=== PATIENT | female | born 1965 | race African-American/Black ===

== ENCOUNTER 2018-04-16 04:16 | Observation (INO) | payer BC, OTHER ==
--- OUTSIDE RECORDS SUMMARY | 2018-04-16 04:18 | XMS REPORT ---
:1965 [facility] Address [address] [place] [address] Care Team Providers Name Role Phone Unavailable Unavailable Unavailable Payers Payer Name Policy Type Policy Number Effective Date Expiration Date Problems This patient has no known problems. Allergies, Adverse Reactions, Alerts Allergy Allergy Status Severity Reaction(s) Onset Inactive Treating Comments Name Type Date Date Clinician No Known DA Active U 2017-12 Allergies -14 00:00:0 0 No Known DA Active U 2017-04 Allergies -16 00:00:0 0 Medications This patient has no known medications.
[2018-04-16 04:59] LABS: Absolute Monocytes 0.4 K/uL (0.1-1.3); Basophils % 1.2 % (0-1.3); Eosinophils % 1.9 % (0-4.4); Hematocrit 37.2 % (36.0-45.0); Lymphocytes % 43.4 % (15.3-44.8); MPV 9.5 fL (7.6-11.3); Monocytes % 9.7 % (3.3-12.3); RBC Red Blood Cell Count 5.02 M/uL (3.86-4.86)
[2018-04-16 05:00] LABS: Protime INR 0.92
[2018-04-16] MEDS ORDERED: NA CHLORIDE 0.9% 1,000 ML ONE (05:04)
[2018-04-16 05:23] LABS: ALT/SGPT 17 U/L (12-78); AST/SGOT 13 U/L (15-37); Albumin 3.6 g/dL (3.4-5.0); Alkaline Phosphatase 108 U/L (45-117); BUN Blood Urea Nitrogen 9 mg/dL (7-18); Bicarbonate 26 mmol/L (21-32); Bilirubin Direct 0.1 mg/dL (0-0.2); Bilirubin Total 0.3 mg/dL (0.2-1.0); Glucose Level 230 mg/dL (74-106); Magnesium 1.5 mg/dL (1.8-2.4); NT PRO-BNP 24 pg/mL (<125); Potassium 3.1 mmol/L (3.5-5.1); Protein, Total 7.5 g/dL (6.4-8.2); Sodium Level 137 mmol/L (136-145); Troponin (Emerg Dept Use Only) < 0.02 ng/mL (0.0-0.045)
--- NOTE | 2018-04-16 05:28 | ER ---
Nurse's Notes [facility] Name: Gretchen Zavala Age: 52 yrs Sex: Female : 1965 Arrival Date: 04/16/2018 Time: 04:19 Bed 7 Private MD: Diagnosis: Chest pain, unspecified;Essential (primary) hypertension;Hypokalemia;Hypomagnesemia;Type 2 diabetes mellitus Presentation: 04/16 04:28 Presenting complaint: Patient states: I started feeling bad 2 hours ago and my pulse tl2 feels high and my BP keeps changing. My blood sugar is high too. I feel lightheaded like I'm going to pass out. Transition of care: patient was not received from another setting of care. Onset of symptoms was April 16, 2018 at 02:00. Risk Assessment: Do you want to hurt yourself or someone else? Patient reports no desire to harm self or others. Initial Sepsis Screen: Does the patient meet any 2 criteria? No. Patient's initial sepsis screen is negative. Does the patient have a suspected source of infection? No. Patient's initial sepsis screen is negative. Care prior to arrival: None. 04:28 Method Of Arrival: Wheelchair tl2 04:28 Acuity: APOLONIA 3 tl2 Triage Assessment: 04:30 General: Appears in no apparent distress. uncomfortable, Behavior is calm, cooperative, tl2 appropriate for age. Pain: Denies pain. Neuro: Level of Consciousness is awake, alert, obeys commands, Oriented to person, place, time, situation, Reports dizziness. Cardiovascular: Denies chest pain, Rhythm is sinus rhythm. Respiratory: Airway is patent Respiratory effort is even, unlabored, Respiratory pattern is regular, symmetrical. GI: No signs and/or symptoms were reported involving the gastrointestinal system. : No signs and/or symptoms were reported regarding the genitourinary system. Derm: Skin is pink, warm \T\ dry. 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 - Social history:: Smoking status: Patient/guardian denies using tobacco. - Ebola Screening: : No symptoms or risks identified at this time. Screenin:40 Abuse screen: Denies threats or abuse. Nutritional screening: No deficits noted. tl2 Tuberculosis screening: No symptoms or risk factors identified. Fall Risk None identified. Assessment: 04:40 General: see triage assessment. tl2 04:40 Pain: Pain does not radiate. Pain began 2 hours ago. tl2 05:29 Reassessment: Patient appears in no apparent distress at this time. No changes from tl2 previously documented assessment. Patient and/or family updated on plan of care and expected duration. Pain level reassessed. Patient is alert, oriented x 3, equal unlabored respirations, skin warm/dry/pink. pt reports nausea, notified, see MAR. 06:16 Reassessment: Patient appears in no apparent distress at this time. Patient and/or tl2 family updated on plan of care and expected duration. Pain level reassessed. Patient is alert, oriented x 3, equal unlabored respirations, skin warm/dry/pink. pt stable and ready for transport to floor. Vital Signs: 04:30 BP 135 / 88; Pulse 100; Resp 18; Temp 98.5(O); Pulse Ox 100% on R/A; Weight 78.02 kg; tl2 Height 5 ft. 4 in. (162.56 cm); Pain 0/10; 05:29 BP 116 / 85; Pulse 87; Resp 18; Pulse Ox 97% on R/A; tl2 06:16 BP 127 / 81; Pulse 76; Resp 18; Pulse Ox 96% on R/A; tl2 04:30 Body Mass Index 29.52 (78.02 kg, 162.56 cm) tl2 ED Course: 04:19 Patient arrived in ED. am2 04:23 Ollie Posada MD is Attending Physician. félix 04:29 Triage completed. tl2 04:30 Arm band placed on right wrist. EKG completed in triage. Results shown to MD. tl2 04:40 Patient has correct armband on for positive identification. Bed in low position. Call tl2 light in reach. Side rails up X 1. radiation monitor on. Pulse ox on. NIBP on. 04:40 Patient maintains SpO2 saturation greater than 95% on room air. tl2 04:40 Inserted saline lock: 20 gauge in right antecubital area, using aseptic technique. tl2 Blood collected. placed by YOHAN Quijano. 05:06 X-ray completed. Portable x-ray completed in exam room. Patient tolerated procedure sg4 well. 05:07 XRAY Chest (1 view) In Process Unspecified. EDMS 05:27 Jose Reyes MD is Hospitalizing Provider. félix 06:16 No provider procedures requiring assistance completed. Patient admitted, IV remains in tl2 place. Administered Medications: 04:55 Drug: NS 0.9% 1000 ml Route: IV; Rate: 1 bolus; Site: right antecubital; tl2 06:07 Follow up: IV Status: Completed infusion; IV Intake: 1000ml tl2 05:27 Not Given (Duplicate Order): Zofran 4 mg IVP once; over 2 minutes tl2 05:28 Drug: Aspirin 162 mg Route: PO; tl2 06:07 Follow up: Response: No adverse reaction tl2 05:28 Drug: Pepcid 20 mg Route: IVP; Site: right antecubital; tl2 06:07 Follow up: Response: No adverse reaction tl2 05:31 Drug: Zofran 4 mg Route: IVP; Site: right antecubital; tl2 06:08 Follow up: Response: No adverse reaction; Nausea is decreased tl2 05:31 Drug: Magnesium Sulfate 1 grams Route: IVPB; Infused Over: 1 hrs; Site: right tl2 antecubital; 06:08 Follow up: IV Status: Completed infusion tl2 05:32 Drug: Lopressor 25 mg Route: PO; tl2 06:08 Follow up: Response: No adverse reaction tl2 06:07 Drug: Potassium Effervescent Tablet 50 mEq Route: PO; tl2 06:08 Follow up: Response: No adverse reaction tl2 06:07 Drug: NS 0.9% with KCl 20 mEq/L 1000 ml Route: IV; Rate: 125 ml/hr; Site: right tl2 antecubital; 06:17 Follow up: IV Status: Infusion continued upon admission tl2 Intake: 06:07 IV: 1000ml; Total: 1000ml. tl2 Outcome: 05:28 Decision to Hospitalize by Provider. félix 06:07 Admitted to Tele accompanied by nurse, via wheelchair, room 410, with chart, Report joaquin called to Yaz ALMANZAR 06:07 Condition: stable 06:07 Instructed on the need for admit. 06:17 Patient left the ED. tl2 Signatures: Dispatcher [employer] Ollie King MD MD cha Ballard, Brenda RN RN Matilda Eubanks RN RN tl2 Radha Seaman Susana [facility]
--- NOTE | 2018-04-16 05:28 | EDPHYS ---
Physician Documentation [facility] Name: Gretchen Zavala Age: 52 yrs Sex: Female : 1965 Arrival Date: 04/16/2018 Time: 04:19 Bed 7 Private MD: PAYAL Physician Ollie Posada HPI: 04/16 05:22 This 52 yrs old Black Female presents to ER via Wheelchair with complaints of High félix Blood Sugar, Irregular Pulse. 05:22 The patient or guardian reports hyperglycemia. Onset: The symptoms/episode félix began/occurred 1 day(s) ago. Associated signs and symptoms: Pertinent positives: nausea. The patient has not experienced similar symptoms in the past. 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 - Social history:: Smoking status: Patient/guardian denies using tobacco. - Ebola Screening: : No symptoms or risks identified at this time. ROS: 05:23 Constitutional: Negative for fever, chills, and weight loss, Eyes: Negative for injury, félix pain, redness, and discharge, ENT: Negative for injury, pain, and discharge, Neck: Negative for injury, pain, and swelling, Respiratory: Negative for shortness of breath, cough, wheezing, and pleuritic chest pain, Abdomen/GI: Negative for abdominal pain, nausea, vomiting, diarrhea, and constipation, Back: Negative for injury and pain, : Negative for injury, bleeding, discharge, and swelling, MS/Extremity: Negative for injury and deformity, Skin: Negative for injury, rash, and discoloration, Neuro: Negative for headache, weakness, numbness, tingling, and seizure, Psych: Negative for depression, anxiety, suicide ideation, homicidal ideation, and hallucinations, Allergy/Immunology: Negative for hives, rash, and allergies, Hematologic/Lymphatic: Negative for swollen nodes, abnormal bleeding, and unusual bruising. 05:23 Cardiovascular: Positive for chest pain, of the chest. 05:23 Neuro: Positive for 05:23 Endocrine: Positive for hyperglycemia. Exam: 05:23 Constitutional: This is a well developed, well nourished patient who is awake, alert, félix and in no acute distress. Head/Face: Normocephalic, atraumatic. Eyes: Pupils equal round and reactive to light, extra-ocular motions intact. Lids and lashes normal. Conjunctiva and sclera are non-icteric and not injected. Cornea within normal limits. Periorbital areas with no swelling, redness, or edema. ENT: Nares patent. No nasal discharge, no septal abnormalities noted. Tympanic membranes are normal and external auditory canals are clear. Oropharynx with no redness, swelling, or masses, exudates, or evidence of obstruction, uvula midline. Mucous membranes moist. Neck: Trachea midline, no thyromegaly or masses palpated, and no cervical lymphadenopathy. Supple, full range of motion without nuchal rigidity, or vertebral point tenderness. No Meningismus. Chest/axilla: Normal chest wall appearance and motion. Nontender with no deformity. No lesions are appreciated. Cardiovascular: Regular rate and rhythm with a normal S1 and S2. No gallops, murmurs, or rubs. Normal PMI, no JVD. No pulse deficits. Respiratory: Lungs have equal breath sounds bilaterally, clear to auscultation and percussion. No rales, rhonchi or wheezes noted. No increased work of breathing, no retractions or nasal flaring. Abdomen/GI: Soft, non-tender, with normal bowel sounds. No distension or tympany. No guarding or rebound. No evidence of tenderness throughout. Back: No spinal tenderness. No costovertebral tenderness. Full range of motion. Skin: Warm, dry with normal turgor. Normal color with no rashes, no lesions, and no evidence of cellulitis. MS/ Extremity: Pulses equal, no cyanosis. Neurovascular intact. Full, normal range of motion. Neuro: Awake and alert, GCS 15, oriented to person, place, time, and situation. Cranial nerves II-XII grossly intact. Motor strength 5/5 in all extremities. Sensory grossly intact. Cerebellar exam normal. Normal gait. Psych: Awake, alert, with orientation to person, place and time. Behavior, mood, and affect are within normal limits. Vital Signs: 04:30 BP 135 / 88; Pulse 100; Resp 18; Temp 98.5(O); Pulse Ox 100% on R/A; Weight 78.02 kg; tl2 Height 5 ft. 4 in. (162.56 cm); Pain 0/10; 05:29 BP 116 / 85; Pulse 87; Resp 18; Pulse Ox 97% on R/A; tl2 06:16 BP 127 / 81; Pulse 76; Resp 18; Pulse Ox 96% on R/A; tl2 04:30 Body Mass Index 29.52 (78.02 kg, 162.56 cm) tl2 MDM: 04:23 Patient medically screened. [facility] 05:25 Data reviewed: vital signs, nurses notes, lab test result(s), EKG, radiologic studies, félix plain films. 04/16 04:39 Order name: Basic Metabolic Panel; Complete Time: 05:25 2 04/16 04:39 Order name: CBC with Diff; Complete Time: 05:22 2 04/16 04:39 Order name: LFT's; Complete Time: 05:25 2 04/16 04:39 Order name: Magnesium; Complete Time: 05:25 2 04/16 04:39 Order name: NT PRO-BNP; Complete Time: 05:25 2 04/16 04:39 Order name: PT-INR; Complete Time: 05:22 2 04/16 04:39 Order name: Troponin (emerg Dept Use Only); Complete Time: 05:25 2 04/16 05:13 Order name: Urine Dipstick--Ancillary (enter results) 2 04/16 05:57 Order name: Basic Metabolic Panel [facility] 04/16 05:57 Order name: Basic Metabolic Panel EDNM 04/16 05:57 Order name: Lipid Profile EDNM 04/16 05:57 Order name: Lipid Profile EDNM 04/16 05:57 Order name: Troponin I EDNM 04/16 05:57 Order name: Troponin I EDNM 04/16 04:39 Order name: XRAY Chest (1 view) tl2 04/16 04:39 Order name: EKG; Complete Time: 04:40 tl2 04/16 05:57 Order name: CONS Physician Consult EDNM 04/16 05:57 Order name: Troponin I EDNM 04/16 05:59 Order name: Echo with Doppler EDNM 04/16 05:59 Order name: CBC with Automated Diff EDMS 04/16 05:59 Order name: CBC with Automated Diff EDMS 04/16 04:39 Order name: Cardiac monitoring; Complete Time: 04:41 tl2 04/16 04:39 Order name: EKG - Nurse/Tech; Complete Time: 04:41 tl2 04/16 04:39 Order name: IV Saline Lock; Complete Time: 04:41 tl2 04/16 04:39 Order name: Labs collected and sent; Complete Time: 04:41 tl2 04/16 04:39 Order name: O2 Per Protocol; Complete Time: 04:41 tl2 04/16 04:39 Order name: O2 Sat Monitoring; Complete Time: 04:41 tl2 04/16 04:53 Order name: Urine Dipstick-Ancillary (obtain specimen); Complete Time: 04:53 tl2 04/16 05:59 Order name: Heart Healthy EDMS 04/16 05:59 Order name: EKG Electrocardiogram EDMS 04/16 05:59 Order name: EKG Electrocardiogram EDMS Administered Medications: 04:55 Drug: NS 0.9% 1000 ml Route: IV; Rate: 1 bolus; Site: right antecubital; tl2 06:07 Follow up: IV Status: Completed infusion; IV Intake: 1000ml tl2 05:27 Not Given (Duplicate Order): Zofran 4 mg IVP once; over 2 minutes tl2 05:28 Drug: Aspirin 162 mg Route: PO; tl2 06:07 Follow up: Response: No adverse reaction tl2 05:28 Drug: Pepcid 20 mg Route: IVP; Site: right antecubital; tl2 06:07 Follow up: Response: No adverse reaction tl2 05:31 Drug: Zofran 4 mg Route: IVP; Site: right antecubital; tl2 06:08 Follow up: Response: No adverse reaction; Nausea is decreased tl2 05:31 Drug: Magnesium Sulfate 1 grams Route: IVPB; Infused Over: 1 hrs; Site: right tl2 antecubital; 06:08 Follow up: IV Status: Completed infusion tl2 05:32 Drug: Lopressor 25 mg Route: PO; tl2 06:08 Follow up: Response: No adverse reaction tl2 06:07 Drug: Potassium Effervescent Tablet 50 mEq Route: PO; tl2 06:08 Follow up: Response: No adverse reaction tl2 06:07 Drug: NS 0.9% with KCl 20 mEq/L 1000 ml Route: IV; Rate: 125 ml/hr; Site: right tl2 antecubital; 06:17 Follow up: IV Status: Infusion continued upon admission tl2 Disposition: 04/16/18 05:28 Hospitalization ordered by Jose Reyes for Observation. Preliminary diagnosis are Chest pain, unspecified, Essential (primary) hypertension, Hypokalemia, Hypomagnesemia, Type 2 diabetes mellitus. - Bed requested for Telemetry/MedSurg (observation). - Status is Observation. tl2 - Condition is Fair. - Problem is new. - Symptoms have improved. UTI on Admission? No Signatures: Dispatcher [employer] EDMS Janet Rosado RN RN mw Anderson, Corey, MD MD cha Knox, Taylor, RN RN tl2 Corrections: (The following items were deleted from the chart) 05:57 05:28 Hospitalization Ordered by Jose Reyes MD for Observation. Preliminary diagnosis is Chest pain, unspecified; Essential (primary) hypertension; Hypokalemia; Hypomagnesemia; Type 2 diabetes mellitus. Bed requested for Telemetry/MedSurg (observation). Status is Observation. Condition is Fair. Problem is new. Symptoms have improved. UTI on Admission? No. [facility] 06:17 05:57 04/16/2018 05:28 Hospitalization Ordered by Jose Reyes MD for Observation. tl2 Preliminary diagnosis is Chest pain, unspecified; Essential (primary) hypertension; Hypokalemia; Hypomagnesemia; Type 2 diabetes mellitus. Bed requested for Telemetry/MedSurg (observation). Status is Observation. Condition is Fair. Problem is new. Symptoms have improved. UTI on Admission? No. mw
[2018-04-16 05:32] LABS: Urine Blood NEGATIVE (NEG); Urine Glucose 2+ (NEG); Urine Protein NEGATIVE (NEG); Urine Specific Gravity <1.005 (1.005-1.030)
[2018-04-16] MEDS ORDERED: FAMOTIDINE 20 MG/2 ML VIAL IV ONE (05:34)
[2018-04-16] MEDS ORDERED: ASPIRIN 81 MG CHEWABLE TABLET ONE (05:34)
[2018-04-16] MEDS ORDERED: ONDANSETRON 4 MG/2 ML VIAL ONE (05:37)
[2018-04-16] MEDS ORDERED: MAGNESIUM SULFATE 1 gm IVPB 1 GM/100 ML BAG IV ONE (05:37)
[2018-04-16] MEDS ORDERED: METOPROLOL TAR 25 MG TAB ONE (05:37)
[2018-04-16] MEDS ORDERED: POTASSIUM 25 MEQ EFFERV TAB ONE (05:39)
[2018-04-16] MEDS ORDERED: ALPRAZOLAM 0.25 MG TABLET PO PRN (05:53)
[2018-04-16] MEDS ORDERED: ACETAMINOPHEN 500 MG TAB PO PRN (05:53)
[2018-04-16] MEDS ORDERED: MORPHINE 4 MG/ML SYR IV PRN (05:53)
[2018-04-16] MEDS ORDERED: NS KCL 20MEQ 1,000 ML IV ONE (06:15)
[2018-04-16 06:29] VITALS: BMI 29.5
--- NOTE | 2018-04-16 07:41 | EKG ---
Test Date: 2018-04-16 Test Time: 04:28:10 Stunt Driver: TL MEASUREMENT RESULTS: Intervals: Rate: 96 [place]: 140 QRSD: 92 QT: 396 QTc: 500 [place]: P: 59 [place]: 140 QRS: -33 T: 12 INTERPRETIVE STATEMENTS: Normal sinus rhythm Left axis deviation Prolonged QT Abnormal ECG No previous ECG available for comparison Electronically Signed On 04-16-18 07:41:13 CNC FIELD SERVICE ENGINEER by Daniel Ayala
--- NOTE | 2018-04-16 07:50 | RAD REPORT ---
EXAM DESCRIPTION: RAD - Chest Single View - 04/16/2018 5:07 am CLINICAL HISTORY: Heart a arrhythmia, palpitations, near syncope COMPARISON: None. TECHNIQUE: AP portable chest image was obtained . FINDINGS: Lungs are clear. Heart and vasculature are normal. No measurable pleural effusion and no p neumothorax. No acute bony abnormality seen. No acute aortic findings suspected. IMPRESSION: No acute cardiopulmonary process.
[2018-04-16 07:59] LABS: HDL Cholesterol 55 mg/dL (40-60); LDL Cholesterol, Calculated 157 (<130); Troponin I < 0.02 ng/mL (0.0-0.045)
[2018-04-16] MEDS ORDERED: INFLUENZA VACCINE (for 3y+) 0.5 ML DOSE IMVAC ONE (09:00)
[2018-04-16] MEDS ORDERED: ENOXAPARIN 40 MG/0.4 ML SQ SCH (09:00)
[2018-04-16] MEDS ORDERED: PNEUMOCOCCAL VACCINE 0.5 ML IMVAC ONE (09:00)
[2018-04-16] MEDS ORDERED: METOPROLOL TAR 50 MG TAB PO SCH (09:00)
[2018-04-16] MEDS ORDERED: ASPIRIN EC 81 MG TAB PO SCH (09:00)
--- NOTE | 2018-04-16 11:05 | CON ---
CARDIOLOGY CONSULT Chief Complaint: Heart fluttering. History Of Present Illness: Ms. Wilkinson has a history of atrial fibrillation. She is on medicine to co ntrol it, but does not know the names of them and has not been able to obtain the names of them. We have attempted to call up pharmacy, she said she uses, apparently she takes a blood thinner and anoth er medicine for heart rhythm. She takes them usually 2-3 times a year. She will go in the atrial fi brillation. It will last a few minutes to a few hours and then go away. Yesterday's spell was no di fferent. She came to the ER and was in sinus rhythm. By the time she got there, her symptoms had re solved. She has been admitted to the hospital overnight and we have not seen any arrhythmia or any f indings on laboratory tests, EKGs, or symptoms that would warrant any further hospitalization. She h as underlying diabetes, hypertension. Never had coronary heart disease, stroke, myocardial infarctio n, or other vascular disease. Uses no tobacco. Physical Examination: Vital Signs: Height 5 feet 4 inches, weight 172 pounds. HEENT: Normal. Lungs: Clear. Heart: Within normal limits. Abdomen: Soft. Extremities: Normal. Electrocardiogram shows sinus rhythm. There is a borderline prolongation of QT, the QTc is 500. Impression: The patient has stable atrial fibrillation. I do not think it is time to alter any of h er medicines. She should either learn her medicine names or take a picture of the medicine bottles o r keep an electronic list in her phone, so she can tell other physicians what medicines she takes that she should resume her previous atrial fibrillation treatments and I thi nk she should be discharged today. DO Voice ID: [id number] Report ID: [id number]
--- NOTE | 2018-04-16 11:29 | P.HP ---
Certification for Inpatient Patient admitted to: Observation With expected LOS: <2 Midnights Patient will require the following post-hospital care: None Practitioner: I am a practitioner with admitting privileges, knowledge of patient current condition, hospital course, and medical plan of care. Services: Services provided to patient in accordance with Admission requirements found in Title 42 Section 412.3 of the Code of Federal Regulations Patient History Date of Service: 04/16/18 Reason for admission: chest pain rule out acute coronary syndrome History of Present Illness: Patient is a 52yo who was admitted to the hospital with chest pain along with palpatations. Patient has a history of palpitations and has been evaluated in the past and treated for arrhythmia. Patient has had some pain that started today. She had the chest pain in the sternal region. She was admitted to the hospital for further evaluation and to be ruled out for acute coronary syndrome. Allergies No Known Allergies Allergy (Unverified 04/16/18 06:04) - Past Medical/Surgical History Has patient received pneumonia vaccine in the past: No Diabetic: Yes -: Hypertension -: NIDDM Past Surgical History: Patient denies surgical history - Family History Mother Medical History: Heart disease - Social History Smoking Status: Never smoker Alcohol use: No CD- Drugs: No Caffeine use: Yes Place of Residence: Home Review of Systems 10-point ROS is otherwise unremarkable Physical Examination - Vital Signs Temperature: 98.8 F Blood Pressure: 119/77 Pulse: 65 Respirations: 16 Pulse Ox (%): 98 - Physical Exam General: Alert, In no apparent distress, Oriented x3 HEENT: Atraumatic, PERRLA, Mucous membr. moist/pink, EOMI, Sclerae nonicteric Neck: Supple, 2+ carotid pulse no bruit, No LAD, Without JVD or thyroid abnormality Respiratory: Clear to auscultation bilaterally, Normal air movement Cardiovascular: Regular rate/rhythm, Normal S1 S2, No murmurs Gastrointestinal: Normal bowel sounds, Soft and benign, Non-distended, No tenderness Musculoskeletal: No clubbing, No swelling, No tenderness Integumentary: No rashes Neurological: Normal gait, Normal speech, Normal strength at 5/5 x4 extr, Normal tone, Sensation intact, Cranial nerves 3-12 intact, Normal affect Lymphatics: No axilla or inguinal lymphadenopathy - Studies Laboratory Data (last 24 hrs) 04/16/18 04:40: PT 10.8, INR 0.92 04/16/18 04:40: WBC 4.6, Hgb 12.0, Hct 37.2, Plt Count 239 04/16/18 04:40: Sodium 137, Potassium 3.1 L, BUN 9, Creatinine 0.64, Glucose 230 H, Magnesium 1.5 L, Total Bilirubin 0.3, AST 13 L, ALT 17, Alkaline Phosphatase 108 Assessment & Plan - Problems (Diagnosis) (1) Chest pain, rule out acute myocardial infarction Current Visit: Yes Status: Acute - Plan 1. Serial troponins and EKG 2. Cardiology consultation 3. Echocardiogram and inpatient stress test(pending cardiology evaluation) 4. Anti-platelet therapy, anti coagulation, beta-karrie, statin, and O2 as needed 5. IV morphine for pain 6. Nitro p.r.n. Discharge Plan: Home Plan to discharge in: 48 Hours - Advance Directives Does patient have a Living Will: No Does patient have a Durable POA for Healthcare: No - Code Status/Comfort Care Code Status Assessed: Yes Code Status: Full Code Critical Care: No Time Spent Managing PTS Care (In Minutes): 45
[2018-04-16 12:19] VITALS: O2SAT 95
[2018-04-16 12:23] VITALS: BP 105/61; TEMP 98.6
[2018-04-16] MEDS ORDERED: METFORMIN HCL 500 MG TAB PO ONE (12:23)
== END 2018-04-16 12:58 | disposition home or self-care (01) ==
LOC: ER 04:16 → ERHOLD 05:59 → 4TH 06:08
PROVIDERS: ADMIT Hospitalist; ATTEND Hospitalist
DX: R07.9 Chest pain, unspecified (principal); R00.2 Palpitations; I48.91 Unspecified atrial fibrillation; I10 Essential (primary) hypertension; E11.9 Type 2 diabetes mellitus without complications
CPT/HCPCS: 36415; 71045; 80048; 80061; 80076; 81003; 82962; 83735; 83880; 84484; 85025; 85610; 93005; 96361; 96365; 96375; 99285; G0378; J1650; J2405; J3475; J7030

== ENCOUNTER 2018-05-26 23:52 | Emergency (ER) | payer BC ==
--- OUTSIDE RECORDS SUMMARY | 2018-05-26 23:55 | XMS REPORT ---
:1965 [facility] Address [address] [place] [address] Care Team Providers Name Role Phone Unavailable [...]
[2018-05-27 00:44] LABS: Absolute Lymphocytes (CBC) 1.8 K/uL (0.7-4.9); Absolute Monocytes 0.3 K/uL (0.1-1.3); Absolute Neutrophil 3.2 K/uL (1.8-8.0); Basophils % 1.3 % (0-1.3); Eosinophils % 0.5 % (0-4.4); Hematocrit 38.2 % (36.0-45.0); MPV 10.1 fL (7.6-11.3); Monocytes % 6.4 % (3.3-12.3); RBC Red Blood Cell Count 5.08 M/uL (3.86-4.86)
[2018-05-27 00:58] LABS: BUN Blood Urea Nitrogen 12 mg/dL (7-18); Bicarbonate 28 mmol/L (21-32); Glucose Level 373 mg/dL (74-106); Potassium 3.8 mmol/L (3.5-5.1); Sodium Level 138 mmol/L (136-145)
[2018-05-27] MEDS ORDERED: INSULIN -REGULAR HUMAN 50 UNIT/0.5 ML ML ONE (01:26)
[2018-05-27] MEDS ORDERED: NA CHLORIDE 0.9% 1,000 ML ONE (01:26)
[2018-05-27 01:37] LABS: Urine Blood NEGATIVE (NEG); Urine Glucose 2+ (NEG); Urine Protein TRACE (NEG); Urine Specific Gravity 1.015 (1.005-1.030)
--- NOTE | 2018-05-27 02:14 | EDPHYS ---
Physician Documentation [facility] Name: Gretchen Zavala Age: 53 yrs Sex: Female : 1965 Arrival Date: 05/26/2018 Time: 23:56 Bed 19 Private MD: Michael Mercado ED Physician Jose Angel Saunders HPI: 05/27 01:06 This 53 yrs old Black Female presents to ER via Ambulatory with complaints of High kb Blood Sugar. 01:06 The patient or guardian reports hyperglycemia, that was potentially precipitated by kb forgetting medications. Onset: The symptoms/episode began/occurred 1 week(s) ago. Associated signs and symptoms: Pertinent positives: nausea. Current symptoms: In the emergency department the patient's symptoms are unchanged from the initial presentation. The patient has experienced similar episodes in the past. The patient has not recently seen a physician. Pt reports she lost her diabetic medication a month ago and her sugar has been running in the 600s for at least a week. Historical: - Allergies: 00:19 No Known Allergies; fc - Home Meds: 00:21 losartan 100 mg oral tab 1 tab once daily [Active]; fc - PMHx: 00:19 Diabetes - NIDDM; Hypertension; High Cholesterol; fc - PSHx: 00:19 Tubal ligation; fc - Immunization history:: Last tetanus immunization: up to date Flu vaccine is not up to date. - Social history:: Smoking status: Patient/guardian denies using tobacco, Patient/guardian denies using alcohol, street drugs. - Ebola Screening: : Patient negative for fever greater than or equal to 101.5 degrees Fahrenheit, and additional compatible Ebola Virus Disease symptoms Patient denies exposure to infectious person Patient denies travel to an Ebola-affected area in the 21 days before illness onset. ROS: 01:05 Constitutional: Negative for fever, chills, and weight loss, ENT: Negative for injury, kb pain, and discharge, Neck: Negative for injury, pain, and swelling, Cardiovascular: Negative for chest pain, palpitations, and edema, Respiratory: Negative for shortness of breath, cough, wheezing, and pleuritic chest pain, Back: Negative for injury and pain, MS/Extremity: Negative for injury and deformity, Skin: Negative for injury, rash, and discoloration, Neuro: Negative for headache, weakness, numbness, tingling, and seizure. 01:05 Abdomen/GI: Positive for nausea, Negative for abdominal pain, vomiting, diarrhea, constipation, abdominal cramps, abdominal distension, anorexia. Exam: 01:06 Constitutional: This is a well developed, well nourished patient who is awake, alert, kb and in no acute distress. Head/Face: Normocephalic, atraumatic. ENT: Nares patent. No nasal discharge, no septal abnormalities noted. Tympanic membranes are normal and external auditory canals are clear. Oropharynx with no redness, swelling, or masses, exudates, or evidence of obstruction, uvula midline. Mucous membranes moist. Neck: Trachea midline, no thyromegaly or masses palpated, and no cervical lymphadenopathy. Supple, full range of motion without nuchal rigidity, or vertebral point tenderness. No Meningismus. Chest/axilla: Normal chest wall appearance and motion. Nontender with no deformity. No lesions are appreciated. Cardiovascular: Regular rate and rhythm with a normal S1 and S2. No gallops, murmurs, or rubs. Normal PMI, no JVD. No pulse deficits. Respiratory: Lungs have equal breath sounds bilaterally, clear to auscultation and percussion. No rales, rhonchi or wheezes noted. No increased work of breathing, no retractions or nasal flaring. Abdomen/GI: Soft, non-tender, with normal bowel sounds. No distension or tympany. No guarding or rebound. No evidence of tenderness throughout. Skin: Warm, dry with normal turgor. Normal color with no rashes, no lesions, and no evidence of cellulitis. MS/ Extremity: Pulses equal, no cyanosis. Neurovascular intact. Full, normal range of motion. Neuro: Awake and alert, GCS 15, oriented to person, place, time, and situation. Cranial nerves II-XII grossly intact. Motor strength 5/5 in all extremities. Sensory grossly intact. Cerebellar exam normal. Normal gait. Vital Signs: 00:00 Weight 79.83 kg (R); Height 5 ft. 4 in. (162.56 cm) (R); Pain 0/10; fc 00:00 BP 147 / 85; Pulse 84; Resp 16; Temp 98.8(O); Pulse Ox 100% on R/A; jb4 01:15 BP 115 / 67; Pulse 95; Resp 16; Pulse Ox 98% on R/A; jb4 02:15 BP 111 / 70; Pulse 94; Resp 16; Pulse Ox 99% on R/A; jb4 00:00 Body Mass Index 30.21 (79.83 kg, 162.56 cm) fc MDM: 00:04 Patient medically screened. kb 01:05 Data reviewed: vital signs, nurses notes. Data interpreted: Pulse oximetry: on room air kb is 100 %. Interpretation: normal. Counseling: I had a detailed discussion with the patient and/or guardian regarding: the historical points, exam findings, and any diagnostic results supporting the discharge/admit diagnosis, lab results, the need for outpatient follow up, a family practitioner, to return to the emergency department if symptoms worsen or persist or if there are any questions or concerns that arise at home. 05/27 00:11 Order name: CBC with Diff; Complete Time: 01:02 kb 05/27 00:11 Order name: Basic Metabolic Panel; Complete Time: 01:02 kb 05/27 00:11 Order name: Acetone, Serum; Complete Time: 01:02 kb 05/27 01:18 Order name: Urine Dipstick--Ancillary (enter results); Complete Time: 01:41 mw2 05/27 01:18 Order name: Urine --Ancillary (enter results); Complete Time: 01:41 mw2 05/27 00:11 Order name: IV Start; Complete Time: 00:34 kb 05/27 00:11 Order name: Urine Dipstick-Ancillary (obtain specimen); Complete Time: 01:05 kb 05/27 01:45 Order name: Blood Glucose Level; Complete Time: 02:21 kb Administered Medications: 01:30 Drug: Insulin Regular Human 5 units {Co-Signature: cc3 (Margarette Presley).} Route: IVP; jb4 Site: right antecubital; 02:22 Follow up: Response: No adverse reaction; Blood sugar is lowered jb4 01:33 Drug: NS 0.9% 1000 ml Route: IV; Rate: 1000 ml; Site: right antecubital; jb4 02:10 Follow up: Response: No adverse reaction; IV Status: Completed infusion; IV Intake: jb4 1000ml Point of Care Testing: Blood Glucose: 00:20 Blood Glucose: 334 mg/dL; jb4 02:04 Blood Glucose: 245 mg/dL; cc3 Ranges: Critical Glucose Levels:Adult <50 mg/dl or >400 mg/dl <40 mg/dl or >180 mg/dl Disposition: 05/27/18 02:14 Discharged to Home. Impression: Hyperglycemia, unspecified. - Condition is Stable. - Discharge Instructions: Hyperglycemia, [id number], Type 2 Diabetes Mellitus, Diagnosis, Adult, [id number]. - Medication Reconciliation Form, Thank You Letter, Antibiotic Education, Prescription Opioid Use form. - Follow up: Emergency Department; When: As needed; Reason: Worsening of condition. Follow up: Private Physician; When: 2 - 3 days; Reason: Recheck today's complaints, Continuance of care, Re-evaluation by your physician. Addendum: 05/29/2018 19:39 Co-signature as Attending Physician, Jose Angel Saunders MD. g s Signatures: Dispatcher [employer] EDMS Tiffany Aguilar, METAL PATTERNMAKER APPRENTICE-C METAL PATTERNMAKER APPRENTICE-Marcie Vicente RN RN Julio César Queen RN RN jb4 Jose Angel Saunders MD MD Margarette Presley cc3 Corrections: (The following items were deleted from the chart) 05/27 02:34 02:14 05/27/2018 02:14 Discharged to Home. Impression: Hyperglycemia, unspecified. jb4 Condition is Stable. Forms are Medication Reconciliation Form, Thank You Letter, Antibiotic Education, Prescription Opioid Use. Follow up: Emergency Department; When: As needed; Reason: Worsening of condition. Follow up: Private Physician; When: 2 - 3 days; Reason: Recheck today's complaints, Continuance of care, Re-evaluation by your physician. kb
--- NOTE | 2018-05-27 02:14 | ER ---
Nurse's Notes [facility] Name: Gretchen Zavala Age: 53 yrs Sex: Female : 1965 Arrival Date: 05/26/2018 Time: 23:56 Bed 19 Private MD: Michael Mercado Diagnosis: Hyperglycemia, unspecified Presentation: 05/27 00:00 Presenting complaint: Patient states: that she has been out of her diab. medication x 1 fc month. Approx 1 week ago she started to have blood sugars in the 600's, nausea, shortness of breath and feeling off balance. Has appt with Dr Eckert next Wednesday. Normally takes Metformin and Glimiperide. Transition of care: patient was not received from another setting of care. Onset of symptoms was May 19, 2018. Risk Assessment: Do you want to hurt yourself or someone else? Patient reports no desire to harm self or others. Initial Sepsis Screen: Does the patient meet any 2 criteria?. Care prior to arrival: None. 00:00 Method Of Arrival: Ambulatory fc 00:00 Acuity: APOLONIA 3 fc Historical: - Allergies: 00:19 No Known Allergies; fc - Home Meds: 00:21 losartan 100 mg oral tab 1 tab once daily [Active]; fc - PMHx: 00:19 Diabetes - NIDDM; Hypertension; High Cholesterol; fc - PSHx: 00:19 Tubal ligation; fc - Immunization history:: Last tetanus immunization: up to date Flu vaccine is not up to date. - Social history:: Smoking status: Patient/guardian denies using tobacco, Patient/guardian denies using alcohol, street drugs. - Ebola Screening: : Patient negative for fever greater than or equal to 101.5 degrees Fahrenheit, and additional compatible Ebola Virus Disease symptoms Patient denies exposure to infectious person Patient denies travel to an Ebola-affected area in the 21 days before illness onset. Screenin:00 Abuse screen: Denies threats or abuse. Nutritional screening: No deficits noted. fc Tuberculosis screening: No symptoms or risk factors identified. Fall Risk None identified. Assessment: 00:10 General: Appears in no apparent distress. comfortable, Behavior is calm, cooperative, jb4 appropriate for age. Pain: Complains of pain in epigastric area Pain does not radiate. Neuro: Level of Consciousness is awake, alert, obeys commands, Oriented to person, place, time, situation. Cardiovascular: Patient's skin is warm and dry. Respiratory: Airway is patent Respiratory effort is even, unlabored, Respiratory pattern is regular, symmetrical. GI: Reports upper abdominal pain. : No signs and/or symptoms were reported regarding the genitourinary system. EENT: No signs and/or symptoms were reported regarding the EENT system. Derm: Skin is intact, Skin is dry, Skin is normal, Skin temperature is warm. Musculoskeletal: Circulation, motion, and sensation intact. 01:00 Reassessment: Patient appears in no apparent distress at this time. Patient and/or jb4 family updated on plan of care and expected duration. Pain level reassessed. Patient is alert, oriented x 3, equal unlabored respirations, skin warm/dry/pink. 02:00 Reassessment: Patient appears in no apparent distress at this time. Patient and/or jb4 family updated on plan of care and expected duration. Pain level reassessed. Patient is alert, oriented x 3, equal unlabored respirations, skin warm/dry/pink. Vital Signs: 00:00 Weight 79.83 kg (R); Height 5 ft. 4 in. (162.56 cm) (R); Pain 0/10; fc 00:00 BP 147 / 85; Pulse 84; Resp 16; Temp 98.8(O); Pulse Ox 100% on R/A; jb4 01:15 BP 115 / 67; Pulse 95; Resp 16; Pulse Ox 98% on R/A; jb4 02:15 BP 111 / 70; Pulse 94; Resp 16; Pulse Ox 99% on R/A; jb4 00:00 Body Mass Index 30.21 (79.83 kg, 162.56 cm) ED Course: 05/26 23:56 Patient arrived in ED. es 23:57 Michael Mercado MD is Private Physician. es 05/27 00:00 Arm band placed on Patient placed in an exam room, on a stretcher. fc 00:00 Patient has correct armband on for positive identification. Placed in gown. Bed in low fc position. Call light in reach. 00:00 No provider procedures requiring assistance completed. fc 00:04 Tiffany Aguilar FNP-C is [facility]. kb 00:04 Jose Angel Saunders MD is Attending Physician. kb 00:16 Triage completed. fc 00:20 Initial lab(s) drawn, by me, sent to lab. Inserted saline lock: 20 gauge in left jb4 antecubital area, using aseptic technique. Blood collected. 00:20 Missed attempt(s): 20 gauge in right antecubital area. jb4 00:34 Julio César Meza, RN is Primary Nurse. jb4 00:34 Acetone, Serum Sent. jb4 00:34 Basic Metabolic Panel Sent. jb4 00:34 CBC with Diff Sent. jb4 01:30 Inserted saline lock: 20 gauge in right antecubital area, using aseptic technique. IV jb4 discontinued, intact, bleeding controlled. 02:32 IV discontinued, intact, bleeding controlled. jb4 Administered Medications: 01:30 Drug: Insulin Regular Human 5 units {Co-Signature: cece3 (Margarette Presley).} Route: IVP; jb4 Site: right antecubital; 02:22 Follow up: Response: No adverse reaction; Blood sugar is lowered jb4 01:33 Drug: NS 0.9% 1000 ml Route: IV; Rate: 1000 ml; Site: right antecubital; jb4 02:10 Follow up: Response: No adverse reaction; IV Status: Completed infusion; IV Intake: jb4 1000ml Point of Care Testing: Blood Glucose: 00:20 Blood Glucose: 334 mg/dL; jb4 02:04 Blood Glucose: 245 mg/dL; cc3 Ranges: Intake: 02:10 IV: 1000ml; Total: 1000ml. jb4 Outcome: 02:14 Discharge ordered by . kb 02:32 Discharged to home ambulatory. jb4 02:32 Condition: stable 02:32 Discharge instructions given to patient, Instructed on discharge instructions, follow up and referral plans. Signs and symptoms of hypoglyemia. Demonstrated understanding of instructions, follow-up care, Signs and symptoms of hypoglycemia. 02:34 Patient left the ED. jb4 Signatures: Tiffany Aguilar FNP-C FNP-Enid Mullen Felicia, RN RN fc Bryson, James, Margarette Silverio RN
[2018-05-27 02:46] VITALS: BP 111/70; TEMP 98.8; O2SAT 99
== END 2018-05-27 02:34 | disposition home or self-care (01) ==
LOC: ER 23:52
DX: E11.65 Type 2 diabetes mellitus with hyperglycemia (principal); I10 Essential (primary) hypertension; E78.00 Pure hypercholesterolemia, unspecified
CPT/HCPCS: 36415; 80048; 81003; 81025; 82010; 82962; 85025; 96361; 96374; 99284; J7030

== ENCOUNTER 2018-06-13 23:55 | Emergency (ER) | payer BC ==
--- OUTSIDE RECORDS SUMMARY | 2018-06-13 23:57 | XMS REPORT ---
:1965 [facility] Address [address] [place] [address] Care Team Providers Name Role Phone Unavailable [...]
[2018-06-14 00:52] LABS: Absolute Lymphocytes (CBC) 2.2 K/uL (0.7-4.9); Absolute Monocytes 0.4 K/uL (0.1-1.3); Absolute Neutrophil 2.8 K/uL (1.8-8.0); Basophils % 1.2 % (0-1.3); Eosinophils % 0.8 % (0-4.4); Hematocrit 39.2 % (36.0-45.0); Lymphocytes % 40.6 % (15.3-44.8); MPV 10.1 fL (7.6-11.3); Monocytes % 6.6 % (3.3-12.3); RBC Red Blood Cell Count 5.14 M/uL (3.86-4.86)
[2018-06-14 01:21] LABS: Albumin 3.7 g/dL (3.4-5.0); Bilirubin Direct 0.2 mg/dL (0-0.2); Bilirubin Total 0.5 mg/dL (0.2-1.0); Potassium 3.7 mmol/L (3.5-5.1); Protein, Total 7.9 g/dL (6.4-8.2)
[2018-06-14] MEDS ORDERED: ONDANSETRON 4 MG/2 ML VIAL ONE (02:14)
[2018-06-14] MEDS ORDERED: NA CHLORIDE 0.9% 1,000 ML ONE (02:14)
[2018-06-14] MEDS ORDERED: INSULIN -REGULAR HUMAN 50 UNIT/0.5 ML ML ONE (02:14)
--- NOTE | 2018-06-14 03:43 | ER ---
Nurse's Notes [facility] Name: Gretchen Zavala Age: 53 yrs Sex: Female : 1965 Arrival Date: 06/13/2018 Time: 23:58 Bed 19 Private MD: Michael Mercado Diagnosis: Hyperglycemia, unspecified Presentation: 06/14 00:07 Presenting complaint: Patient states: I have high blood sugar, and I just don't feel jb4 well. I have been having diarrhea and stomach pain since earlier today. 00:07 Transition of care: patient was not received from another setting of care. Onset of jb4 symptoms was June 13, 2018. Risk Assessment: Do you want to hurt yourself or someone else? Patient reports no desire to harm self or others. Initial Sepsis Screen: Does the patient meet any 2 criteria? HR > 90 bpm. Yes Does the patient have a suspected source of infection? No. Patient's initial sepsis screen is negative. Care prior to arrival: None. 00:07 Method Of Arrival: Ambulatory jb4 00:07 Acuity: APOLONIA 3 jb4 Triage Assessment: 00:07 General: Appears in no apparent distress. uncomfortable, Behavior is calm, cooperative, jb4 appropriate for age. Pain: Complains of pain in epigastric area Pain does not radiate. Pain currently is 10 out of 10 on a pain scale. Quality of pain is described as aching, crampy, Pain began 1 day ago. EENT: No signs and/or symptoms were reported regarding the EENT system. Neuro: Level of Consciousness is awake, alert, obeys commands, Oriented to person, place, time, situation. Cardiovascular: Patient's skin is warm and dry. Respiratory: Airway is patent Respiratory effort is even, unlabored, Respiratory pattern is regular, symmetrical. GI: Abdomen is non-distended, obese, Bowel sounds present X 4 quads. Abd is soft and non tender X 4 quads. Abdomen is tender to palpation in epigastric area Reports upper abdominal pain, diarrhea, nausea. : No signs and/or symptoms were reported regarding the genitourinary system. Derm: Skin is intact, Skin is dry, Skin is normal, Skin temperature is warm. Musculoskeletal: Circulation, motion, and sensation intact. FAMILY LAW SPECIALIST: 00:07 LMP N/A - Post-menopause jb4 Historical: - Allergies: 00:07 No Known Allergies; jb4 - Home Meds: 00:07 unknown BP med [Active]; Nifedipine Oral [Active]; losartan 100 mg Oral tab 1 tab once jb4 daily [Active]; Metformin Oral [Active]; atorvastatin 20 mg oral tab 1 tab once daily [Active]; sertraline 50 mg oral tab 1 tab once daily [Active]; alpha lipoic acid 600 mg oral cap [Active]; Farxiga 10 mg oral tab [Active]; Eliquis 5 mg oral tab [Active]; ozempic [Active]; - PMHx: 00:07 Hypertension; High Cholesterol; Diabetes - NIDDM; Depression; jb4 - PSHx: 00:07 Tubal ligation; jb4 - Immunization history:: Adult Immunizations up to date, Flu vaccine status is unknown. - Social history:: Smoking status: Patient/guardian denies using tobacco, Patient uses alcohol, occasionally. - Ebola Screening: : No symptoms or risks identified at this time. Screenin:07 Abuse screen: Denies threats or abuse. Nutritional screening: No deficits noted. jb4 Tuberculosis screening: No symptoms or risk factors identified. Fall Risk IV access (20 points). Total Guardado Fall Scale indicates No Risk (0-24 pts). Assessment: 00:07 General: See triage assessment.. jb4 01:00 Reassessment: Patient appears in no apparent distress at this time. Patient and/or jb4 family updated on plan of care and expected duration. Pain level reassessed. Patient is alert, oriented x 3, equal unlabored respirations, skin warm/dry/pink. 02:00 Reassessment: Patient appears in no apparent distress at this time. Patient and/or jb4 family updated on plan of care and expected duration. Pain level reassessed. Patient is alert, oriented x 3, equal unlabored respirations, skin warm/dry/pink. 03:00 Reassessment: Patient appears in no apparent distress at this time. Patient and/or jb4 family updated on plan of care and expected duration. Pain level reassessed. Patient is alert, oriented x 3, equal unlabored respirations, skin warm/dry/pink. 04:14 Reassessment: Patient appears in no apparent distress at this time. Patient and/or jb4 family updated on plan of care and expected duration. Pain level reassessed. Patient is alert, oriented x 3, equal unlabored respirations, skin warm/dry/pink. Vital Signs: 00:07 BP 146 / 98; Pulse 101; Resp 18; Temp 98.1(O); Pulse Ox 97% on R/A; Weight 79.38 kg jb4 (R); Height 5 ft. 4 in. (162.56 cm); Pain 10/10; 01:00 BP 128 / 87; Pulse 93; Resp 16; Pulse Ox 95% on R/A; jb4 02:00 BP 143 / 94; Pulse 92; Resp 16; Pulse Ox 94% on R/A; jb4 03:00 BP 142 / 86; Pulse 91; Resp 16; Pulse Ox 97% on R/A; jb4 04:00 BP 122 / 78; Pulse 76; Resp 16; Pulse Ox 98% on R/A; jb4 00:07 Body Mass Index 30.04 (79.38 kg, 162.56 cm) jb4 ED Course: 06/13 23:58 Patient arrived in ED. ds1 23:59 Michael Mercado MD is Private Physician. ds1 06/14 00:07 Arm band placed on. jb4 00:07 Patient has correct armband on for positive identification. Placed in gown. Bed in low jb4 position. Call light in reach. Side rails up X 1. Pulse ox on. NIBP on. 00:09 Julio César Meza, RN is Primary Nurse. jb4 00:15 Initial lab(s) drawn, by md, sent to lab. Inserted saline lock: 20 gauge in right jb4 antecubital area, using aseptic technique. Blood collected. 00:18 Anirudh Montero MD is Attending Physician. tw4 00:25 Triage completed. jb4 03:41 Michael Mercado MD is Referral Physician. tw4 04:00 No provider procedures requiring assistance completed. Patient did not have IV access jb4 during this emergency room visit. Administered Medications: 02:05 Drug: Insulin Regular Human 10 units {Co-Signature: ak1 (Marylin Lea RN).} Route: IVP; jb4 Site: right antecubital; 03:00 Follow up: Response: No adverse reaction; Blood sugar is lowered jb4 02:06 Drug: NS 0.9% 1000 ml Route: IV; Rate: 1 bolus; Site: right antecubital; jb4 03:30 Follow up: Response: No adverse reaction; IV Status: Completed infusion; IV Intake: jb4 1000ml 02:07 Drug: Zofran 4 mg Route: IVP; Site: right antecubital; jb4 02:30 Follow up: Response: No adverse reaction; Nausea is decreased jb4 Point of Care Testing: Blood Glucose: 00:15 Blood Glucose: 418 mg/dL; jb4 03:00 Blood Glucose: 200 mg/dL; jb4 Ranges: Intake: 03:30 IV: 1000ml; Total: 1000ml. jb4 Outcome: 03:43 Discharge ordered by . tw4 04:00 Discharged to home ambulatory. jb4 04:00 Condition: stable 04:00 Discharge instructions given to patient, Instructed on discharge instructions, follow up and referral plans. Demonstrated understanding of instructions, follow-up care. 04:18 Patient left the ED. jb4 Signatures: Funmi Chaudhry ds1 Julio César Meza RN RN jb4 Anirudh Montero MD MD tw4 Marylin Lea RN ak1
--- NOTE | 2018-06-14 03:44 | EDPHYS ---
Physician Documentation [facility] Name: Gretchen Zavala Age: 53 yrs Sex: Female : 1965 Arrival Date: 06/13/2018 Time: 23:58 Bed 19 Private MD: Michael Mercado ED Physician Anirudh Montero HPI: 06/14 03:39 This 53 yrs old Black Female presents to ER via Ambulatory with complaints of High tw4 Blood Sugar. 03:39 The patient or guardian reports hyperglycemia. Onset: The symptoms/episode tw4 began/occurred today. Current symptoms: In the emergency department the patient's symptoms are unchanged from the initial presentation. nausea, The patient has not experienced similar symptoms in the past. 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-menopause jb4 Historical: - Allergies: 00:07 No Known Allergies; jb4 - Home Meds: 00:07 unknown BP med [Active]; Nifedipine Oral [Active]; losartan 100 mg Oral tab 1 tab once jb4 daily [Active]; Metformin Oral [Active]; atorvastatin 20 mg oral tab 1 tab once daily [Active]; sertraline 50 mg oral tab 1 tab once daily [Active]; alpha lipoic acid 600 mg oral cap [Active]; Farxiga 10 mg oral tab [Active]; Eliquis 5 mg oral tab [Active]; ozempic [Active]; - PMHx: 00:07 Hypertension; High Cholesterol; Diabetes - NIDDM; Depression; jb4 - PSHx: 00:07 Tubal ligation; jb4 - Immunization history:: Adult Immunizations up to date, Flu vaccine status is unknown. - Social history:: Smoking status: Patient/guardian denies using tobacco, Patient uses alcohol, occasionally. - Ebola Screening: : No symptoms or risks identified at this time. ROS: 03:39 Constitutional: Negative for fever, chills, and weight loss, Eyes: Negative for injury, tw4 pain, redness, and discharge, Cardiovascular: Negative for chest pain, palpitations, and edema, Respiratory: Negative for shortness of breath, cough, wheezing, and pleuritic chest pain, Back: Negative for injury and pain. 03:39 MS/Extremity: Negative for injury and deformity, Skin: Negative for injury, rash, and discoloration, Neuro: Negative for headache, weakness, numbness, tingling, and seizure. 03:39 Abdomen/GI: Positive for nausea, Negative for abdominal pain, nausea and vomiting, vomiting, diarrhea, abdominal cramps, abdominal distension, anorexia, black/tarry stool, rectal pain, rectal bleeding, bowel incontinence. Exam: 03:39 Constitutional: This is a well developed, well nourished patient who is awake, alert, tw4 and in no acute distress. Head/Face: Normocephalic, atraumatic. Eyes: Pupils equal round and reactive to light, extra-ocular motions intact. Lids and lashes normal. Conjunctiva and sclera are non-icteric and not injected. Cornea within normal limits. Periorbital areas with no swelling, redness, or edema. Chest/axilla: Normal chest wall appearance and motion. Nontender with no deformity. No lesions are appreciated. Cardiovascular: Regular rate and rhythm with a normal S1 and S2. No gallops, murmurs, or rubs. Normal PMI, no JVD. No pulse deficits. Respiratory: Lungs have equal breath sounds bilaterally, clear to auscultation and percussion. No rales, rhonchi or wheezes noted. No increased work of breathing, no retractions or nasal flaring. Back: No spinal tenderness. No costovertebral tenderness. Full range of motion. MS/ Extremity: Pulses equal, no cyanosis. Neurovascular intact. Full, normal range of motion. Neuro: Awake and alert, GCS 15, oriented to person, place, time, and situation. Cranial nerves II-XII grossly intact. Motor strength 5/5 in all extremities. Sensory grossly intact. Cerebellar exam normal. Normal gait. Vital Signs: 00:07 BP 146 / 98; Pulse 101; Resp 18; Temp 98.1(O); Pulse Ox 97% on R/A; Weight 79.38 kg jb4 (R); Height 5 ft. 4 in. (162.56 cm); Pain 10/10; 01:00 BP 128 / 87; Pulse 93; Resp 16; Pulse Ox 95% on R/A; jb4 02:00 BP 143 / 94; Pulse 92; Resp 16; Pulse Ox 94% on R/A; jb4 03:00 BP 142 / 86; Pulse 91; Resp 16; Pulse Ox 97% on R/A; jb4 04:00 BP 122 / 78; Pulse 76; Resp 16; Pulse Ox 98% on R/A; 4 00:07 Body Mass Index 30.04 (79.38 kg, 162.56 cm) MDM: 00:18 Patient medically screened. tw4 03:39 Differential diagnosis: DKA, hyperglycemia. Data reviewed: vital signs, nurses notes. tw4 Data interpreted: Pulse oximetry: Interpretation: normal. Counseling: I had a detailed discussion with the patient and/or guardian regarding: the historical points, exam findings, and any diagnostic results supporting the discharge/admit diagnosis, lab results. Medication response: insulin . Response to treatment: and as a result, I will discharge patient. 06/14 00:28 Order name: Basic Metabolic Panel; Complete Time: 01:33 06/14 01:33 Interpretation: Normal except: GLUC 426; GFR 71. 06/14 00:28 Order name: CBC with Diff; Complete Time: 01:33 06/14 01:33 Interpretation: Normal except: RBC 5.14; MCV 76.4; MCHC 30.8; MCH 23.5. 06/14 00:28 Order name: Creatinine for Radiology 06/14 00:28 Order name: Hepatic Function; Complete Time: 01:33 06/14 01:34 Interpretation: Normal except: AST 12; ALK 124; GLOB 4.2; A/G 0.9. 06/14 00:28 Order name: Lipase 06/14 00:28 Order name: IV Saline Lock; Complete Time: 00:44 06/14 00:28 Order name: Labs collected and sent; Complete Time: 00:44 Administered Medications: 02:05 Drug: Insulin Regular Human 10 units {Co-Signature: ak1 (Marylin Lae RN).} Route: IVP; jb4 Site: right antecubital; 03:00 Follow up: Response: No adverse reaction; Blood sugar is lowered 02:06 Drug: NS 0.9% 1000 ml Route: IV; Rate: 1 bolus; Site: right antecubital; jb4 03:30 Follow up: Response: No adverse reaction; IV Status: Completed infusion; IV Intake: jb4 1000ml 02:07 Drug: Zofran 4 mg Route: IVP; Site: right antecubital; jb4 02:30 Follow up: Response: No adverse reaction; Nausea is decreased jb4 Point of Care Testing: Blood Glucose: 00:15 Blood Glucose: 418 mg/dL; jb4 03:00 Blood Glucose: 200 mg/dL; jb4 Ranges: Critical Glucose Levels:Adult <50 mg/dl or >400 mg/dl <40 mg/dl or >180 mg/dl Disposition: 06/14/18 03:43 Discharged to Home. Impression: Hyperglycemia, unspecified. - Condition is Stable. - Discharge Instructions: Hyperglycemia. - Medication Reconciliation Form, Thank You Letter, Antibiotic Education, Prescription Opioid Use form. - Follow up: Michael Mercado MD; When: Upon discharge from the Emergency Department; Reason: If symptoms return, Recheck today's complaints, Continuance of care. - Problem is new. - Symptoms have improved. Signatures: Dispatcher [employer] EDMS Julio César Meza RN RN jb4 Anirudh Montero MD MD tw4 Marylin Lea RN ak1 Corrections: (The following items were deleted from the chart) 04:18 03:43 06/14/2018 03:43 Discharged to Home. Impression: Hyperglycemia, unspecified. jb4 Condition is Stable. Forms are Medication Reconciliation Form, Thank You Letter, Antibiotic Education, Prescription Opioid Use. Follow up: Michael Mercado; When: Upon discharge from the Emergency Department; Reason: If symptoms return, Recheck today's complaints, Continuance of care. Problem is new. Symptoms have improved. tw4
[2018-06-14 06:10] VITALS: TEMP 98.1
[2018-06-14 06:14] VITALS: BP 122/78; O2SAT 98
== END 2018-06-14 04:18 | disposition home or self-care (01) ==
LOC: ER 23:55
DX: E11.65 Type 2 diabetes mellitus with hyperglycemia (principal); I10 Essential (primary) hypertension; E78.00 Pure hypercholesterolemia, unspecified; F32.9 Major depressive disorder, single episode, unspecified
CPT/HCPCS: 36415; 80048; 80076; 82962; 83690; 85025; 96361; 96374; 96375; 99284; J2405; J7030

== ENCOUNTER 2018-06-25 13:08 | Emergency (ER) | payer BC ==
--- OUTSIDE RECORDS SUMMARY | 2018-06-25 13:10 | XMS REPORT ---
:1965 [facility] Address [address] [place] [address] Care Team Providers Name Role Phone Unavailable [...]
[2018-06-25] MEDS ORDERED: NA CHLORIDE 0.9% 1,000 ML ONE ×2 (13:42→15:27)
[2018-06-25] MEDS ORDERED: PROMETHAZINE 25 MG/ML VIAL ONE (13:59)
[2018-06-25 14:00] LABS: Absolute Lymphocytes (CBC) 1.2 K/uL (0.7-4.9); Absolute Monocytes 0.3 K/uL (0.1-1.3); Absolute Neutrophil 3.7 K/uL (1.8-8.0); Basophils % 0.6 % (0-1.3); Eosinophils % 0.4 % (0-4.4); Hematocrit 39.5 % (36.0-45.0); Lymphocytes % 22.5 % (15.3-44.8); MPV 10.1 fL (7.6-11.3); Monocytes % 5.1 % (3.3-12.3); RBC Red Blood Cell Count 5.12 M/uL (3.86-4.86)
[2018-06-25 14:17] LABS: Albumin 4.1 g/dL (3.4-5.0); Bilirubin Direct 0.1 mg/dL (0-0.2); Bilirubin Total 0.4 mg/dL (0.2-1.0); Potassium 3.6 mmol/L (3.5-5.1); Protein, Total 8.2 g/dL (6.4-8.2)
[2018-06-25 14:49] LABS: Urine Blood NEGATIVE (NEG); Urine Glucose 3+ (NEG); Urine Protein NEGATIVE (NEG); Urine Specific Gravity 1.015 (1.005-1.030); Urine pH 5.5 (5.0-7.0)
[2018-06-25] MEDS ORDERED: INSULIN -REGULAR HUMAN 50 UNIT/0.5 ML ML ONE (15:13)
[2018-06-25 15:17] LABS: Blood Morphology Comment NOTED (NOT SEEN); Platelet Estimate ADEQ; Urine White Blood Cell Casts OK
[2018-06-25 15:18] LABS: Anisocytosis 1+
--- NOTE | 2018-06-25 16:06 | EDPHYS ---
Physician Documentation [facility] Name: Gretchen Zavala Age: 53 yrs Sex: Female : 1965 Arrival Date: 06/25/2018 Time: 13:10 Bed 17 Private MD: Michael Mercado ED Physician Finesse Foster HPI: 06/25 16:11 This 53 yrs old Black Female presents to ER via Ambulatory with complaints of High snw Blood Sugar, Nausea. 16:11 The patient or guardian reports hyperglycemia, that was potentially precipitated by no snw particular event. Onset: The symptoms/episode began/occurred suddenly, 1 day(s) ago, and became persistent. Associated signs and symptoms: Pertinent positives: nausea, vomiting. Current symptoms: In the emergency department the patient's symptoms are unchanged from the initial presentation. It is unknown whether or not the patient has had similar symptoms in the past. The patient has been recently seen by a physician: the patient's primary care provider, Dr. Mercado. Historical: - Allergies: 13:13 No Known Allergies; la1 - PMHx: 13:13 Depression; Diabetes - NIDDM; High Cholesterol; Hypertension; la1 - Immunization history:: Adult Immunizations up to date. - Social history:: Smoking status: Patient/guardian denies using tobacco. - Ebola Screening: : No symptoms or risks identified at this time. ROS: 13:47 Constitutional: Negative for fever, chills, and weight loss, Eyes: Negative for injury, snw pain, redness, and discharge, ENT: Negative for injury, pain, and discharge, Neck: Negative for injury, pain, and swelling, Cardiovascular: Negative for chest pain, palpitations, and edema, Respiratory: Negative for shortness of breath, cough, wheezing, and pleuritic chest pain, Back: Negative for injury and pain, : Negative for injury, bleeding, discharge, and swelling, MS/Extremity: Negative for injury and deformity, Skin: Negative for injury, rash, and discoloration, Neuro: Negative for headache, weakness, numbness, tingling, and seizure. 13:47 Abdomen/GI: Positive for abdominal pain, nausea and vomiting, of the epigastric area and umbilical area. Exam: 13:47 Constitutional: This is a well developed, well nourished patient who is awake, alert, snw and in no acute distress. Head/Face: Normocephalic, atraumatic. Eyes: Pupils equal round and reactive to light, extra-ocular motions intact. Lids and lashes normal. Conjunctiva and sclera are non-icteric and not injected. Cornea within normal limits. Periorbital areas with no swelling, redness, or edema. ENT: Nares patent. No nasal discharge, no septal abnormalities noted. Tympanic membranes are normal and external auditory canals are clear. Oropharynx with no redness, swelling, or masses, exudates, or evidence of obstruction, uvula midline. Mucous membranes moist. Neck: Trachea midline, no thyromegaly or masses palpated, and no cervical lymphadenopathy. Supple, full range of motion without nuchal rigidity, or vertebral point tenderness. No Meningismus. Chest/axilla: Normal chest wall appearance and motion. Nontender with no deformity. No lesions are appreciated. Cardiovascular: Regular rate and rhythm with a normal S1 and S2. No gallops, murmurs, or rubs. Normal PMI, no JVD. No pulse deficits. Respiratory: Lungs have equal breath sounds bilaterally, clear to auscultation and percussion. No rales, rhonchi or wheezes noted. No increased work of breathing, no retractions or nasal flaring. 13:47 Back: No spinal tenderness. No costovertebral tenderness. Full range of motion. MS/ Extremity: Pulses equal, no cyanosis. Neurovascular intact. Full, normal range of motion. Neuro: Awake and alert, GCS 15, oriented to person, place, time, and situation. Cranial nerves II-XII grossly intact. Motor strength 5/5 in all extremities. Sensory grossly intact. Cerebellar exam normal. Normal gait. 13:47 Abdomen/GI: Inspection: abdomen appears normal, Bowel sounds: normal, Palpation: abdomen is soft and non-tender. 13:47 Skin: Appearance: Moisture: dry. Vital Signs: 13:13 BP 120 / 77; Pulse 102; Resp 16; Temp 98.4; Pulse Ox 98% on R/A; Weight 79.38 kg; la1 Height 5 ft. 4 in. (162.56 cm); 14:15 BP 134 / 90; Pulse 91; Resp 18; Pulse Ox 99% on R/A; em 15:30 BP 124 / 80; Pulse 83; Resp 18; Pulse Ox 100% on R/A; em 16:28 BP 127 / 86; Pulse 87; Resp 16; Pulse Ox 97% on R/A; Pain 0/10; em 13:13 Body Mass Index 30.04 (79.38 kg, 162.56 cm) la1 MDM: 13:27 Patient medically screened. snw 16:07 Data reviewed: vital signs, nurses notes. Data interpreted: Pulse oximetry: on room air snw is 100 %. Interpretation: normal. Counseling: I had a detailed discussion with the patient and/or guardian regarding: the historical points, exam findings, and any diagnostic results supporting the discharge/admit diagnosis, the presence of at least one elevated blood pressure reading (>120/80) during this emergency department visit, lab results, the need for outpatient follow up, to return to the emergency department if symptoms worsen or persist or if there are any questions or concerns that arise at home. 06/25 13:25 Order name: Basic Metabolic Panel; Complete Time: 14:22 snw 06/25 13:25 Order name: CBC with Diff; Complete Time: 15:18 snw 06/25 13:25 Order name: Hepatic Function; Complete Time: 14:22 snw 06/25 13:25 Order name: Blood Culture Adult (2) snw 06/25 13:25 Order name: Osmolality, Serum; Complete Time: 14:42 snw 06/25 14:12 Order name: CBC Smear Scan; Complete Time: 15:18 EDMS 06/25 13:25 Order name: IV Saline Lock; Complete Time: 13:51 snw 06/25 13:25 Order name: Labs collected and sent; Complete Time: 13:51 snw 06/25 14:25 Order name: Urine Dipstick--Ancillary (enter results); Complete Time: 14:51 eb 06/25 15:42 Order name: FSBS; Complete Time: 16:07 snw 06/25 15:42 Order name: VS Recheck; Complete Time: 16:07 snw Administered Medications: 13:51 Drug: NS 0.9% 1000 ml Route: IV; Rate: 1 bolus; Site: right antecubital; em 15:20 Follow up: IV Status: Completed infusion; IV Intake: 1000ml em 13:57 Drug: Phenergan 6.25 mg Route: IVP; Site: right antecubital; ss 15:20 Follow up: Response: No adverse reaction; Nausea is decreased em 15:11 Drug: Insulin Regular Human 5 units {Co-Signature: em (Kush Bach BUILDING CONSTRUCTION CONTRACTOR).} Route: IVP; ss Site: right antecubital; 16:10 Follow up: Response: No adverse reaction; Blood sugar is lowered em 15:12 Drug: Insulin Regular Human 5 units {Co-Signature: em (Kush Bach BUILDING CONSTRUCTION CONTRACTOR).} Route: Sub-Q; ss Site: right upper arm; 16:10 Follow up: Response: No adverse reaction; Blood sugar is lowered em 15:19 Drug: NS 0.9% 1000 ml Route: IV; Rate: 125 ml/hr; Site: right antecubital; em 17:00 Follow up: IV Status: Completed infusion; IV Intake: 1000ml em Point of Care Testing: Blood Glucose: 13:19 Blood Glucose: 393 mg/dL; mh5 15:49 Blood Glucose: 234 mg/dL; em Ranges: Critical Glucose Levels:Adult <50 mg/dl or >400 mg/dl <40 mg/dl or >180 mg/dl Disposition: 06/25/18 16:06 Discharged to Home. Impression: Hyperglycemia, unspecified, Dehydration. - Condition is Stable. - Discharge Instructions: Iron Deficiency Anemia, Adult, Dehydration, Adult, Diabetes and Sick Day Management, Iron-Rich Diet, Hyperglycemia, Rehydration, Adult. - Prescriptions for promethazine 25 mg Oral Tablet - take 1 tablet by ORAL route every 6 hours As needed; 20 tablet. - Work release form, Medication Reconciliation Form, Thank You Letter, Antibiotic Education, Prescription Opioid Use form. - Follow up: Michael Mercado MD; When: 2 - 3 days; Reason: Recheck today's complaints, Continuance of care, Re-evaluation by your physician. Follow up: Emergency Department; When: As needed; Reason: Worsening of condition. Addendum: 06/27/2018 08:06 Co-signature as Attending Physician, Finesse Foster MD Available for consultation at p s1 all times. . Signatures: Dispatcher [employer] EDKarine Young, TESSA-C MILK PICKUP TRUCK DRIVER-Csnw Kush Bach, BUILDING CONSTRUCTION CONTRACTOR BUILDING CONSTRUCTION CONTRACTOR em Winsome Gamino RN RN ss Vik Cordova RN RN la1 Finesse Foster MD MD ps1 Kush Bach BUILDING CONSTRUCTION CONTRACTOR em Corrections: (The following items were deleted from the chart) 06/25 17:05 16:06 06/25/2018 16:06 Discharged to Home. Impression: Hyperglycemia, unspecified; em Dehydration. Condition is Stable. Forms are Medication Reconciliation Form, Thank You Letter, Antibiotic Education, Prescription Opioid Use. Follow up: Michael Mercado; When: 2 - 3 days; Reason: Recheck today's complaints, Continuance of care, Re-evaluation by your physician. Follow up: Emergency Department; When: As needed; Reason: Worsening of condition. snw
--- NOTE | 2018-06-25 16:06 | ER ---
Nurse's Notes [facility] Name: Gretchen Zavala Age: 53 yrs Sex: Female : 1965 Arrival Date: 06/25/2018 Time: 13:10 Bed 17 Private MD: Michael Mercado Diagnosis: Hyperglycemia, unspecified;Dehydration Presentation: 06/25 13:12 Presenting complaint: Patient states: I checked my BGL this morning and it said "HIGH" la1 and I feel abd pain, nausea. Transition of care: patient was not received from another setting of care. Onset of symptoms was June 25, 2018. Risk Assessment: Do you want to hurt yourself or someone else? Patient reports no desire to harm self or others. Initial Sepsis Screen: Does the patient meet any 2 criteria? No. Patient's initial sepsis screen is negative. Does the patient have a suspected source of infection? No. Patient's initial sepsis screen is negative. Care prior to arrival: None. 13:12 Method Of Arrival: Ambulatory la1 13:12 Acuity: APOLONIA 3 la1 Historical: - Allergies: 13:13 No Known Allergies; la1 - PMHx: 13:13 Depression; Diabetes - NIDDM; High Cholesterol; Hypertension; la1 - Immunization history:: Adult Immunizations up to date. - Social history:: Smoking status: Patient/guardian denies using tobacco. - Ebola Screening: : No symptoms or risks identified at this time. Screenin:45 Abuse screen: Denies threats or abuse. Nutritional screening: No deficits noted. em Tuberculosis screening: No symptoms or risk factors identified. Fall Risk None identified. Assessment: 13:30 General: Appears in no apparent distress. uncomfortable, Behavior is calm, cooperative, em Denies fever. Pain: Complains of pain in epigastric area Pain currently is 5 out of 10 on a pain scale. Pain began 1 day ago. Neuro: Level of Consciousness is awake, alert, obeys commands, Oriented to person, place, time, situation. Cardiovascular: Capillary refill < 3 seconds Patient's skin is warm and dry. Respiratory: Airway is patent Respiratory effort is even, unlabored, Respiratory pattern is regular, symmetrical. GI: Abdomen is flat, Pt is actively vomiting undigested food, Bowel sounds present X 4 quads. Abd is soft X 4 quads Abdomen is tender to palpation X 4 quads. Reports nausea, vomiting, Patient currently denies diarrhea. : Reports urinary frequency. Derm: Skin is intact, is healthy with good turgor, Skin is pink, warm \\T\\ dry. Musculoskeletal: Capillary refill < 3 seconds, Range of motion: intact in all extremities. 13:35 Reassessment: The previous assessment is accurate, call light remains within reach. ss 14:30 Reassessment: Patient appears in no apparent distress at this time. Patient and/or em family updated on plan of care and expected duration. Pain level reassessed. Patient is alert, oriented x 3, equal unlabored respirations, skin warm/dry/pink. Patient states feeling better. Patient states symptoms have improved. 16:22 Reassessment: pt discharged, will be discharged after completion of completion of em second NS Patient denies pain at this time. Patient states feeling better. Vital Signs: 13:13 BP 120 / 77; Pulse 102; Resp 16; Temp 98.4; Pulse Ox 98% on R/A; Weight 79.38 kg; la1 Height 5 ft. 4 in. (162.56 cm); 14:15 BP 134 / 90; Pulse 91; Resp 18; Pulse Ox 99% on R/A; em 15:30 BP 124 / 80; Pulse 83; Resp 18; Pulse Ox 100% on R/A; em 16:28 BP 127 / 86; Pulse 87; Resp 16; Pulse Ox 97% on R/A; Pain 0/10; em 13:13 Body Mass Index 30.04 (79.38 kg, 162.56 cm) la1 ED Course: 13:10 Patient arrived in ED. mr 13:11 Michael Mercado MD is Private Physician. mr 13:13 Triage completed. la1 13:13 Arm band placed on left wrist. la1 13:20 Bed in low position. Call light in reach. Warm blanket given. Pulse ox on. NIBP on. mh5 13:22 Kush Bach LVN is Primary Nurse. em 13:24 [facility]C [facility] snw 13:24 Finesse Foster MD is Attending Physician. snw 13:30 Initial lab(s) drawn, by me, sent to lab. Inserted saline lock: 20 gauge in right em antecubital area, using aseptic technique. Blood collected. 14:25 Urine collected: clean catch specimen, clear. mh5 16:06 Michael Mercado MD is Referral Physician. snw 16:56 No provider procedures requiring assistance completed. IV discontinued, intact, em bleeding controlled, No redness/swelling at site. Pressure dressing applied. Administered Medications: 13:51 Drug: NS 0.9% 1000 ml Route: IV; Rate: 1 bolus; Site: right antecubital; em 15:20 Follow up: IV Status: Completed infusion; IV Intake: 1000ml em 13:57 Drug: Phenergan 6.25 mg Route: IVP; Site: right antecubital; ss 15:20 Follow up: Response: No adverse reaction; Nausea is decreased em 15:11 Drug: Insulin Regular Human 5 units {Co-Signature: galina (Kush Bach SALES RELATIONSHIP MANAGER).} Route: IVP; ss Site: right antecubital; 16:10 Follow up: Response: No adverse reaction; Blood sugar is lowered em 15:12 Drug: Insulin Regular Human 5 units {Co-Signature: galina (Kush Bach SALES RELATIONSHIP MANAGER).} Route: Sub-Q; ss Site: right upper arm; 16:10 Follow up: Response: No adverse reaction; Blood sugar is lowered em 15:19 Drug: NS 0.9% 1000 ml Route: IV; Rate: 125 ml/hr; Site: right antecubital; em 17:00 Follow up: IV Status: Completed infusion; IV Intake: 1000ml em Point of Care Testing: Blood Glucose: 13:19 Blood Glucose: 393 mg/dL; mh5 15:49 Blood Glucose: 234 mg/dL; em Ranges: Intake: 15:20 IV: 1000ml; Total: 1000ml. em 17:00 IV: 1000ml; Total: 2000ml. em Outcome: 16:06 Discharge ordered by MD. snw 16:57 Discharged to home ambulatory, with family. em 16:57 Condition: good 16:57 Discharge instructions given to patient, family, Instructed on discharge instructions, follow up and referral plans. medication usage, Demonstrated understanding of instructions, follow-up care, medications, Prescriptions given X 1. 17:05 Patient left the ED. em Signatures: Karine Alex, NAILHEAD SETTER-C NAILHEAD SETTER-Csnw RashardYnes Kush Bach SALES RELATIONSHIP MANAGER SALES RELATIONSHIP MANAGER em Smirch, Winsome, YOHAN RN ss Vik Cordova RN RN [facility] Tammi Mazariegos [facility] Kuhs Bach SALES RELATIONSHIP MANAGER em
[2018-06-25 17:56] VITALS: TEMP 98.4
[2018-06-25 18:04] VITALS: BP 127/86; O2SAT 97
== END 2018-06-25 17:05 | disposition home or self-care (01) ==
LOC: ER 13:08
DX: E11.65 Type 2 diabetes mellitus with hyperglycemia (principal); E86.0 Dehydration
CPT/HCPCS: 36415; 80048; 80076; 81003; 82962; 83930; 85025; 87040; 96361; 96372; 96374; 96375; 99284; J2550; J7030

== ENCOUNTER 2018-06-30 16:56 | Emergency (ER) | payer BC ==
--- OUTSIDE RECORDS SUMMARY | 2018-06-30 16:58 | XMS REPORT ---
:1965 [facility] Address [address] [place] [address] Care Team Providers Name Role Phone Unavailable [...]
[2018-06-30 17:34] LABS: Absolute Lymphocytes (CBC) 1.3 K/uL (0.7-4.9); Absolute Monocytes 0.3 K/uL (0.1-1.3); Absolute Neutrophil 2.4 K/uL (1.8-8.0); Eosinophils % 0.8 % (0-4.4); Hematocrit 36.2 % (36.0-45.0); Lymphocytes % 31.7 % (15.3-44.8); MPV 9.8 fL (7.6-11.3); Monocytes % 8.1 % (3.3-12.3); RBC Red Blood Cell Count 4.72 M/uL (3.86-4.86)
[2018-06-30 17:35] LABS: Protime INR 1.15
[2018-06-30] MEDS ORDERED: ONDANSETRON 4 MG/2 ML VIAL ONE (17:37)
[2018-06-30] MEDS ORDERED: NA CHLORIDE 0.9% 1,000 ML ONE (17:37)
--- NOTE | 2018-06-30 17:38 | RAD REPORT ---
EXAM DESCRIPTION: CT - Head Brain Wo Cont - 06/30/2018 5:31 pm CLINICAL HISTORY: Dizziness;Headache Headache, hypertension COMPARISON: No comparisons TECHNIQUE: All CT scans are performed using dose optimization technique as appropriate and may inclu de automated exposure control or mA/KV adjustment according to patient size. FINDINGS: No intracranial hemorrhage, hydrocephalus or extra-axial fluid collection.No areas of brai n edema or evidence of midline shift. The paranasal sinuses and mastoids are clear. The calvarium is intact. IMPRESSION: No acute intracranial abnormality.
[2018-06-30 17:55] LABS: Urine Blood NEGATIVE (NEG); Urine Glucose 2+ (NEG); Urine Protein NEGATIVE (NEG)
[2018-06-30 17:56] LABS: ALT/SGPT 17 U/L (12-78); AST/SGOT 15 U/L (15-37); Albumin 3.7 g/dL (3.4-5.0); Alkaline Phosphatase 89 U/L (45-117); BUN Blood Urea Nitrogen 14 mg/dL (7-18); Bicarbonate 27 mmol/L (21-32); Bilirubin Direct 0.2 mg/dL (0-0.2); Bilirubin Total 0.6 mg/dL (0.2-1.0); Glucose Level 256 mg/dL (74-106); Magnesium 1.6 mg/dL (1.8-2.4); Potassium 4.2 mmol/L (3.5-5.1); Protein, Total 7.4 g/dL (6.4-8.2); Sodium Level 138 mmol/L (136-145); Troponin (Emerg Dept Use Only) < 0.02 ng/mL (0.0-0.045)
[2018-06-30] MEDS ORDERED: MECLIZINE HCL 12.5 MG TAB ONE (18:04)
[2018-06-30 18:57] LABS: Urine Bacteria <20 /HPF (<20); Urine Culture Reflex Order NOT NEEDED; Urine RBC <5 /HPF (NONE SEEN)
[2018-06-30] MEDS ORDERED: MAGNESIUM SULFATE 1 gm IVPB 1 GM/100 ML BAG IV ONE (18:58)
--- NOTE | 2018-06-30 19:41 | ER ---
Nurse's Notes [facility] Name: Gretchen Zavala Age: 53 yrs Sex: Female : 1965 Arrival Date: 06/30/2018 Time: 16:57 Bed 23 Private MD: Michael Mercado Diagnosis: Dizziness and giddiness;Diabetes mellitus due to underlying condition with hyperglycemia Presentation: 06/30 17:02 Presenting complaint: Patient states: Pain to the back of the head that started this sg morning at 10 am, pt reports having dizziness and nausea as well as having high blood sugars for several weeks, sugars running in the 400's, pt reports she is taking her medications as prescribed, denies diarrhea/fever. Transition of care: patient was not received from another setting of care. Onset of symptoms was June 30, 2018. Risk Assessment: Do you want to hurt yourself or someone else? Patient reports no desire to harm self or others. Initial Sepsis Screen: Does the patient meet any 2 criteria? No. Patient's initial sepsis screen is negative. Does the patient have a suspected source of infection? No. Patient's initial sepsis screen is negative. Care prior to arrival: None. 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 LMP N/A - Post-menopause sg Historical: - Allergies: 17:04 No Known Allergies; sg - Home Meds: 17:31 alpha lipoic acid 600 mg Oral cap [Active]; atorvastatin 20 mg Oral tab 1 tab once mg2 daily [Active]; Eliquis 5 mg Oral tab [Active]; Farxiga 10 mg Oral tab [Active]; losartan 100 mg Oral tab 1 tab once daily [Active]; Metformin Oral [Active]; Nifedipine Oral [Active]; ozempic [Active]; sertraline 50 mg Oral tab 1 tab once daily [Active]; unknown BP med [Active]; - PMHx: 17:04 Depression; Diabetes - NIDDM; High Cholesterol; Hypertension; sg - Immunization history:: Adult Immunizations up to date. - Social history:: Smoking status: Patient/guardian denies using tobacco. - Ebola Screening: : Patient negative for fever greater than or equal to 101.5 degrees Fahrenheit, and additional compatible Ebola Virus Disease symptoms Patient denies exposure to infectious person Patient denies travel to an Ebola-affected area in the 21 days before illness onset No symptoms or risks identified at this time. Screenin:03 VAN Screening: Arm Drift: Patient shows no arm weakness. Patient is VAN negative. sg 17:30 Abuse screen: Denies threats or abuse. Denies injuries from another. Nutritional mg2 screening: No deficits noted. Tuberculosis screening: No symptoms or risk factors identified. Fall Risk IV access (20 points). Assessment: 17:29 General: Appears in no apparent distress. comfortable, Behavior is calm, cooperative. mg2 Pain: Complains of pain in head Pain does not radiate. Pain currently is 2 out of 10 on a pain scale. Quality of pain is described as aching, Pain began gradually, 1 day ago. Is intermittent. Neuro: Level of Consciousness is awake, alert, obeys commands, Oriented to person, place, time, situation, Reports headache parietal area. Neuro: Reports dizziness. Cardiovascular: Capillary refill < 3 seconds Patient's skin is warm and dry. Respiratory: Airway is patent Respiratory effort is even, unlabored, Respiratory pattern is regular, symmetrical. GI: Abdomen is round non-distended, Reports nausea. : No signs and/or symptoms were reported regarding the genitourinary system. EENT: No signs and/or symptoms were reported regarding the EENT system. Derm: Skin is intact, is healthy with good turgor, Skin is pink, warm \T\ dry. normal. Musculoskeletal: Circulation, motion, and sensation intact. Capillary refill < 3 seconds. 19:45 Reassessment: patient for discharge after completing the infusion. mg2 19:57 Reassessment: Patient states feeling better. Patient states symptoms have improved. mg2 Vital Signs: 17:03 Pulse 87; Resp 16; Temp 97.2; Pulse Ox 100% on R/A; Weight 70.76 kg (R); Height 5 ft. 4 sg in. (162.56 cm) (R); Pain 10/10; 17:49 BP 141 / 78 LA Supine (auto/); Pulse 87; Resp 18; Pulse Ox 100% on R/A; mg2 17:49 BP 135 / 80 LA Sitting (auto/); Pulse 87; Resp 18; Pulse Ox 100% on R/A; mg2 17:49 BP 130 / 82 LA Standing (auto/); Pulse 89; Resp 18; Pulse Ox 100% on R/A; mg2 19:00 BP 128 / 79; Pulse 80; Resp 18; Pulse Ox 100% on R/A; Pain 0/10; mg2 17:03 Body Mass Index 26.78 (70.76 kg, 162.56 cm) ED Course: 16:57 Patient arrived in ED. mr 16:58 Michael Mercado MD is Private Physician. mr 17:03 Ollie Machado PA is PHCP. cp 17:03 Jose Angel Saunders MD is Attending Physician. cp 17:03 Wai Roblero, YOHAN is Primary Nurse. mg2 17:03 Triage completed. sg 17:[address] via wheelchair. nj 17:28 EKG done, by life science technical officer. reviewed by Ollie JUNE. sm3 17:29 Arm band placed on right wrist. mg2 17:30 Patient has correct armband on for positive identification. Pulse ox on. NIBP on. Door mg2 closed. Warm blanket given. 17:31 CT Head Brain wo Cont In Process Unspecified. EDMS 17:32 No provider procedures requiring assistance completed. Inserted saline lock: 20 gauge mg2 in right antecubital area, using aseptic technique. Blood collected. 19:57 IV discontinued, intact, bleeding controlled, No redness/swelling at site. Pressure mg2 dressing applied. Administered Medications: 17:47 Drug: NS 0.9% 1000 ml Route: IV; Rate: 1 bolus; Site: right antecubital; mg2 19:42 Follow up: Response: No adverse reaction; IV Status: Completed infusion mg2 17:49 Drug: Zofran 4 mg Route: IVP; Site: right antecubital; mg2 19:42 Follow up: Response: No adverse reaction; Marked relief of symptoms mg2 17:53 Drug: Meclizine 25 mg Route: PO; mg2 19:42 Follow up: Response: No adverse reaction; Marked relief of symptoms mg2 18:49 Drug: Magnesium Sulfate 1 grams Route: IVPB; Infused Over: 1 hrs; Site: right mg2 antecubital; 19:57 Follow up: Response: No adverse reaction; IV Status: Completed infusion mg2 Point of Care Testing: Blood Glucose: 17:23 Blood Glucose: 264 mg/dL; mg2 19:22 Blood Glucose: 179 mg/dL; mg2 Ranges: Outcome: 19:40 Discharge ordered by . cp 19:57 Discharged to home ambulatory. mg2 19:57 Condition: stable 19:57 Discharge instructions given to patient, Instructed on discharge instructions, follow up and referral plans. medication usage, Demonstrated understanding of instructions, follow-up care, medications, Prescriptions given X 2. 19:58 Patient left the ED. mg2 Signatures: Dispatcher [employer] EDMS Silvino Fuentes RN RN Ynes Wetzel Corey, PA PA cp Jordan, Nathan nj Gardose, Michele, RN RN mg2 Carol Ocasio 3
--- NOTE | 2018-06-30 19:41 | EDPHYS ---
Physician Documentation [facility] Name: Gretchen Zavala Age: 53 yrs Sex: Female : 1965 Arrival Date: 06/30/2018 Time: 16:57 Bed 23 Private MD: Michael Mercado ED Physician Jose Angel Saunders HPI: 06/30 17:20 This 53 yrs old Black Female presents to ER via Ambulatory with complaints of cp Dizziness, Nausea. 17:20 The patient presents with lightheadedness. Onset: The symptoms/episode began/occurred cp this morning, at 10:00. 17:20 Associated signs and symptoms: Pertinent positives: headache, nausea, general weakness, cp Pertinent negatives: blurred vision, chest pain, focal weakness, shortness of breath, vomiting. Severity of symptoms: in the emergency department the symptoms are unchanged. 17:20 Patient's baseline: Neuro: alert and fully oriented, Motor: no deficits, Ambulation: cp walks without assistance, Speech: normal. 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 LMP N/A - Post-menopause sg Historical: - Allergies: 17:04 No Known Allergies; sg - Home Meds: 17:31 alpha lipoic acid 600 mg Oral cap [Active]; atorvastatin 20 mg Oral tab 1 tab once mg2 daily [Active]; Eliquis 5 mg Oral tab [Active]; Farxiga 10 mg Oral tab [Active]; losartan 100 mg Oral tab 1 tab once daily [Active]; Metformin Oral [Active]; Nifedipine Oral [Active]; ozempic [Active]; sertraline 50 mg Oral tab 1 tab once daily [Active]; unknown BP med [Active]; - PMHx: 17:04 Depression; Diabetes - NIDDM; High Cholesterol; Hypertension; sg - Immunization history:: Adult Immunizations up to date. - Social history:: Smoking status: Patient/guardian denies using tobacco. - Ebola Screening: : Patient negative for fever greater than or equal to 101.5 degrees Fahrenheit, and additional compatible Ebola Virus Disease symptoms Patient denies exposure to infectious person Patient denies travel to an Ebola-affected area in the 21 days before illness onset No symptoms or risks identified at this time. ROS: 17:28 Eyes: Negative for injury, pain, redness, and discharge. cp 17:28 Constitutional: Negative for body aches, chills, fever, poor PO intake. 17:28 ENT: Negative for drainage from ear(s), ear pain, sore throat, difficulty swallowing, difficulty handling secretions. 17:28 Neck: Negative for pain with movement, pain at rest, stiffness, tenderness. 17:28 Cardiovascular: Negative for chest pain, edema, palpitations. 17:28 Respiratory: Negative for cough, shortness of breath, wheezing. 17:28 Abdomen/GI: Negative for abdominal pain, vomiting, diarrhea, constipation, black/tarry stool, rectal bleeding. 17:28 : Negative for urinary symptoms. 17:28 Skin: Negative for cellulitis, rash. 17:28 Neuro: Positive for dizziness, headache, general weakness, Negative for altered mental status, syncope. 17:28 All other systems are negative. Exam: 17:30 ECG was reviewed by the Attending Physician. cp 17:35 Constitutional: The patient appears in no acute distress, alert, awake, cp non-diaphoretic, non-toxic, well developed, well nourished. 17:35 Head/Face: Normocephalic, atraumatic. Eyes: Pupils equal round and reactive to light, cp extra-ocular motions intact. Lids and lashes normal. Conjunctiva and sclera are non-icteric and not injected. Cornea within normal limits. Periorbital areas with no swelling, redness, or edema. ENT: Nares patent. No nasal discharge, no septal abnormalities noted. Tympanic membranes are normal and external auditory canals are clear. Oropharynx with no redness, swelling, or masses, exudates, or evidence of obstruction, uvula midline. Mucous membranes moist. 17:35 Neck: ROM/movement: is normal, is supple, without pain, no range of motions limitations, no nuchal rigidity. 17:35 Chest/axilla: Inspection: normal, Palpation: is normal, no crepitus, no tenderness. 17:35 Cardiovascular: Rate: normal, Rhythm: regular, Edema: is not appreciated, JVD: is not appreciated. 17:35 Respiratory: the patient does not display signs of respiratory distress, Respirations: normal, no use of accessory muscles, no retractions, no splinting, no tachypnea, labored breathing, is not present, Breath sounds: are clear throughout, no decreased breath sounds, no stridor, no wheezing. 17:35 Abdomen/GI: Inspection: abdomen appears normal, Palpation: abdomen is soft and non-tender, in all quadrants. 17:35 Skin: no rash present. 17:35 Neuro: Orientation: to person, place \T\ time. Mentation: is normal, Cerebellar function: Romberg testing is negative, normal finger to nose testing, Motor: moves all fours, strength is normal, Sensation: no obvious gross deficits. Vital Signs: 17:03 Pulse 87; Resp 16; Temp 97.2; Pulse Ox 100% on R/A; Weight 70.76 kg (R); Height 5 ft. 4 sg in. (162.56 cm) (R); Pain 10/10; 17:49 BP 141 / 78 LA Supine (auto/); Pulse 87; Resp 18; Pulse Ox 100% on R/A; mg2 17:49 BP 135 / 80 LA Sitting (auto/); Pulse 87; Resp 18; Pulse Ox 100% on R/A; mg2 17:49 BP 130 / 82 LA Standing (auto/); Pulse 89; Resp 18; Pulse Ox 100% on R/A; mg2 19:00 BP 128 / 79; Pulse 80; Resp 18; Pulse Ox 100% on R/A; Pain 0/10; mg2 17:03 Body Mass Index 26.78 (70.76 kg, 162.56 cm) MDM: 17:08 Patient medically screened. cp 19:38 Data reviewed: vital signs, nurses notes, lab test result(s), EKG, radiologic studies, cp CT scan, plain films. 19:38 Test interpretation: by ED physician or midlevel provider: ECG. cp 19:40 Response to treatment: the patient's symptoms have markedly improved after treatment, cp patient is well hydrated. and as a result, I will discharge patient. 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 06/30 17:15 Order name: Basic Metabolic Panel; Complete Time: 18:35 cp 06/30 18:35 Interpretation: Normal except: GLUC 256; GFR 86. cp 06/30 17:15 Order name: CBC with Diff; Complete Time: 17:48 cp 18 17:48 Interpretation: Normal except: WBC 4.1; HGB 11.3; MCV 76.7; MCH 23.9; MCHC 31.2. cp 18 17:15 Order name: LFT's; Complete Time: 18:35 cp 18 19:03 Interpretation: Normal except: GLOB 3.7; A/G 1.0. cp 06/30 17:15 Order name: Magnesium; Complete Time: 18:35 cp 18 19:04 Interpretation: Abnormal: MG 1.6. cp 06/30 17:15 Order name: PT-INR; Complete Time: 17:48 cp 06/30 19:06 Interpretation: Normal except: PT 13.5. cp 06/30 17:15 Order name: Troponin (emerg Dept Use Only); Complete Time: 18:35 cp 06/30 17:18 Order name: CT Head Brain wo Cont; Complete Time: 17:40 cp 06/30 17:40 Interpretation: Report reviewed. cp 06/30 17:18 Order name: Urine Microscopic Only; Complete Time: 19:03 cp 06/30 19:03 Interpretation: Reviewed. cp 06/30 17:54 Order name: Urine Dipstick--Ancillary (enter results); Complete Time: 18:35 eb 06/30 17:54 Order name: Urine --Ancillary (enter results); Complete Time: 18:35 eb 06/30 17:15 Order name: EKG; Complete Time: 17:16 cp 06/30 17:15 Order name: Cardiac monitoring; Complete Time: 17:28 cp 06/30 17:15 Order name: EKG - Nurse/Tech; Complete Time: 17:28 cp 06/30 17:15 Order name: IV Saline Lock; Complete Time: 17:28 cp 06/30 17:15 Order name: Labs collected and sent; Complete Time: 17:28 cp 06/30 17:15 Order name: O2 Per Protocol; Complete Time: 17:28 cp 06/30 17:15 Order name: O2 Sat Monitoring; Complete Time: 17:28 cp 06/30 17:16 Order name: Orthostatics; Complete Time: 17:49 cp 06/30 17:16 Order name: Accucheck Blood Glucose; Complete Time: 17:23 cp 18 17:18 Order name: Urine Dipstick-Ancillary (obtain specimen); Complete Time: 17:49 cp 18 17:18 Order name: Urine Test (obtain specimen); Complete Time: 17:49 cp 18 19:18 Order name: Accucheck Blood Glucose; Complete Time: 19:22 cp EC:30 Rate is 89 beats/min. Rhythm is regular. ND interval is normal. QRS interval is normal. cp QT interval is normal. T waves are Inverted in lead III. Interpreted by me. Reviewed by me. Administered Medications: 17:47 Drug: NS 0.9% 1000 ml Route: IV; Rate: 1 bolus; Site: right antecubital; mg2 19:42 Follow up: Response: No adverse reaction; IV Status: Completed infusion mg2 17:49 Drug: Zofran 4 mg Route: IVP; Site: right antecubital; mg2 19:42 Follow up: Response: No adverse reaction; Marked relief of symptoms mg2 17:53 Drug: Meclizine 25 mg Route: PO; mg2 19:42 Follow up: Response: No adverse reaction; Marked relief of symptoms mg2 18:49 Drug: Magnesium Sulfate 1 grams Route: IVPB; Infused Over: 1 hrs; Site: right mg2 antecubital; 19:57 Follow up: Response: No adverse reaction; IV Status: Completed infusion mg2 Point of Care Testing: Blood Glucose: 17:23 Blood Glucose: 264 mg/dL; mg2 19:22 Blood Glucose: 179 mg/dL; mg2 Ranges: Critical Glucose Levels:Adult <50 mg/dl or >400 mg/dl <40 mg/dl or >180 mg/dl Disposition: 06/30/18 19:40 Discharged to Home. Impression: Dizziness and giddiness, Diabetes mellitus due to underlying condition with hyperglycemia. - Condition is Stable. - Discharge Instructions: Dizziness, Blood Glucose Monitoring, Adult, Diabetes Mellitus and Food. - Prescriptions for Meclizine 25 mg Oral Tablet - take 1 tablet by ORAL route every 8 hours As needed; 30 tablet. Zofran 4 mg Oral Tablet - take 1 tablet by ORAL route every 12 hours As needed; 20 tablet. - Medication Reconciliation Form, Thank You Letter, Antibiotic Education, Prescription Opioid Use form. - Follow up: Private Physician; When: 1 - 2 days; Reason: Recheck today's complaints. - Problem is new. - Symptoms have improved. Addendum: 07/03/2018 00:15 Co-signature as Attending Physician, Jose Angel Saunders MD. g s Signatures: Dispatcher [employer] EDMS Silvino Fuentes, RN RN sg Ollie Machado, SHAYLEE PA cp Jose Angel Saunders MD MD Wai Roblero RN RN mg2 Corrections: (The following items were deleted from the chart) 06/30 19:58 19:40 06/30/2018 19:40 Discharged to Home. Impression: Dizziness and giddiness; mg2 Diabetes mellitus due to underlying condition with hyperglycemia. Condition is Stable. Forms are Medication Reconciliation Form, Thank You Letter, Antibiotic Education, Prescription Opioid Use. Follow up: Private Physician; When: 1 - 2 days; Reason: Recheck today's complaints. Problem is new. Symptoms have improved. cp
[2018-06-30 20:11] VITALS: TEMP 97.2; O2SAT 100
[2018-06-30 20:14] VITALS: BP 128/79
--- NOTE | 2018-07-01 06:14 | EKG ---
Test Date: 2018-06-30 Test Time: 17:24:58 Guard Lieutenant: VEL MEASUREMENT RESULTS: Intervals: Rate: 89 CT: 142 QRSD: 88 QT: 370 QTc: 450 [place]: P: 45 CT: 142 QRS: -30 T: 6 INTERPRETIVE STATEMENTS: Normal sinus rhythm Left axis deviation Abnormal ECG Compared to ECG 04/16/2018 04:28:10 Prolonged QT interval no longer present Electronically Signed On 07-01-18 06:13:09 CDT by Daniel Ayala
== END 2018-06-30 19:58 | disposition home or self-care (01) ==
LOC: ER 16:56
DX: E11.65 Type 2 diabetes mellitus with hyperglycemia (principal); I10 Essential (primary) hypertension; E78.00 Pure hypercholesterolemia, unspecified; F32.9 Major depressive disorder, single episode, unspecified; Z79.01 Long term (current) use of anticoagulants
CPT/HCPCS: 36415; 70450; 80048; 80076; 81003; 81015; 81025; 82962; 83735; 84484; 85025; 85610; 93005; 96361; 96365; 96375; 99285; J2405; J3475; J7030

== ENCOUNTER 2018-07-05 07:12 | Emergency (ER) | payer BC ==
--- OUTSIDE RECORDS SUMMARY | 2018-07-05 07:14 | XMS REPORT ---
:1965 Author Organization [facility] Address [address] [place] [address] Care Team Providers Name Role Phone Unavailable [...]
[2018-07-05 08:25] LABS: Absolute Lymphocytes (CBC) 1.6 K/uL (0.7-4.9); Absolute Monocytes 0.3 K/uL (0.1-1.3); Absolute Neutrophil 2.3 K/uL (1.8-8.0); Basophils % 0.9 % (0-1.3); Eosinophils % 1.1 % (0-4.4); Hematocrit 38.3 % (36.0-45.0); Lymphocytes % 37.6 % (15.3-44.8); MPV 9.8 fL (7.6-11.3); RBC Red Blood Cell Count 5.01 M/uL (3.86-4.86)
[2018-07-05] MEDS ORDERED: MECLIZINE HCL 12.5 MG TAB ONE (08:56)
[2018-07-05] MEDS ORDERED: NA CHLORIDE 0.9% 1,000 ML ONE (08:56)
[2018-07-05] MEDS ORDERED: ONDANSETRON 4 MG/2 ML VIAL ONE (08:56)
[2018-07-05 09:27] LABS: BUN Blood Urea Nitrogen 6 mg/dL (7-18); Bicarbonate 25 mmol/L (21-32); Glucose Level 201 mg/dL (74-106); Potassium 3.5 mmol/L (3.5-5.1); Sodium Level 140 mmol/L (136-145)
[2018-07-05 10:13] LABS: Urine Blood NEGATIVE (NEG); Urine Glucose 3+ (NEG); Urine Protein NEGATIVE (NEG); Urine Specific Gravity <1.005 (1.005-1.030)
--- NOTE | 2018-07-05 10:32 | ER ---
Nurse's Notes [facility] Name: Gretchen Zavala Age: 53 yrs Sex: Female : 1965 Arrival Date: 07/05/2018 Time: 07:14 Bed 13 Private MD: Michael Mercado Diagnosis: Dizziness and giddiness;Hyperglycemia, unspecified Presentation: 07/05 07:18 Presenting complaint: Patient states: "I just don't feel good, I couldn't sleep last aa5 night, and finally I checked my blood sugar this morning because I was so weak and it was 500". Pt c/o nausea and dizziness. 07:18 Transition of care: patient was not received from another setting of care. Onset of aa5 symptoms was July 05, 2018. Risk Assessment: Do you want to hurt yourself or someone else? Patient reports no desire to harm self or others. Initial Sepsis Screen: Does the patient meet any 2 criteria? No. Patient's initial sepsis screen is negative. Does the patient have a suspected source of infection? No. Patient's initial sepsis screen is negative. Care prior to arrival: None. 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 - Social history:: Smoking status: Patient/guardian denies using tobacco. - Ebola Screening: : No symptoms or risks identified at this time. Screenin:00 Abuse screen: Denies threats or abuse. Denies injuries from another. Nutritional ph screening: No deficits noted. Tuberculosis screening: No symptoms or risk factors identified. Fall Risk None identified. Assessment: 07:45 General: Appears in no apparent distress. comfortable, well groomed, Behavior is calm, ph cooperative, appropriate for age, Reports fatigue for >3 days, insomnia Denies fever, feeling ill. Pain: Denies pain. Neuro: Level of Consciousness is awake, alert, obeys commands, Oriented to person, place, time, situation, Reports dizziness. Cardiovascular: Capillary refill < 3 seconds in bilateral fingers Patient's skin is warm and dry. Respiratory: Airway is patent Respiratory effort is even, unlabored, Respiratory pattern is regular, symmetrical. GI: Abdomen is round non-distended, Bowel sounds present X 4 quads. Reports nausea, Patient currently denies diarrhea, vomiting. Derm: Skin is intact, is healthy with good turgor, Skin is pink, warm \\T\\ dry. Musculoskeletal: Circulation, motion, and sensation intact. Range of motion: intact in all extremities. 08:57 Reassessment: Patient appears in no apparent distress at this time. Patient and/or ph family updated on plan of care and expected duration. Pain level reassessed. Patient is alert, oriented x 3, equal unlabored respirations, skin warm/dry/pink. Pt resting quietly, reports slight nausea at this time, antiemetic administered IVP, see MAR, PO Meclizine left at bedside for pt to take when nausea improves, VSS at this time, will continue to monitor. 10:16 Reassessment: Patient appears in no apparent distress at this time. No changes from ph previously documented assessment. Patient and/or family updated on plan of care and expected duration. Pain level reassessed. Patient is alert, oriented x 3, equal unlabored respirations, skin warm/dry/pink. Vital Signs: 07:20 BP 128 / 80; Pulse 90; Resp 18 S; Temp 98.1(TE); Pulse Ox 99% on R/A; Weight 70.76 kg aa5 (R); Height 5 ft. 4 in. (162.56 cm) (R); Pain 0/10; 08:21 BP 123 / 81 Supine; Pulse 95 LA; Resp 18; kj1 08:21 BP 125 / 87 Sitting; Pulse 100; Resp 18; kj1 08:21 BP 125 / 92 Standing; Pulse 95; Resp 18; kj1 09:18 BP 112 / 77; Pulse 76; Resp 18; Pulse Ox 97% on R/A; ph 10:18 BP 106 / 72; Pulse 81; Resp 16; Pulse Ox 98% on R/A; ph 10:48 BP 107 / 69; Pulse 78; Resp 18; Temp 97.8; Pulse Ox 99% on R/A; ph 07:20 Body Mass Index 26.78 (70.76 kg, 162.56 cm) aa5 Vitals: 09:18 Cardiac Rhythm Assessment Sinus rhythm. ph NIH Stroke Scale Scores: 08:15 NIHSS Score: 0 kb ED Course: 07:14 Patient arrived in ED. as 07:15 Michael Mercado MD is Private Physician. as 07:17 Tiffany Aguilar [facility]-C [facility]. kb 07:17 Jose Angel Saunders MD is Attending Physician. kb 07:18 Ollie Posada MD is Attending Physician. kb 07:18 Arm band placed on. aa5 07:24 Triage completed. aa5 07:28 Kandace Nathan, YOHAN is Primary Nurse. ph 08:10 Urine collected: clean catch specimen, cloudy, jasiel colored. jb1 08:15 Initial lab(s) drawn, by me, sent to lab. Inserted saline lock: 20 gauge in right kj1 antecubital area, using aseptic technique. 09:00 Patient has correct armband on for positive identification. Placed in gown. Bed in low ph position. Call light in reach. Side rails up X 1. information services assistant on. Pulse ox on. NIBP on. Door closed. Noise minimized. Lights dimmed. Warm blanket given. 10:57 No provider procedures requiring assistance completed. IV discontinued, intact, ph bleeding controlled, No redness/swelling at site. Pressure dressing applied. Administered Medications: 08:57 Drug: NS 0.9% 1000 ml Route: IV; Rate: 1000 ml; Site: right antecubital; ph 10:50 Follow up: Response: No adverse reaction; IV Status: Completed infusion ph 08:57 Drug: Zofran 4 mg Route: IVP; Site: right antecubital; ph 10:57 Follow up: Response: No adverse reaction; Nausea is decreased ph 09:16 Drug: Meclizine 25 mg Route: PO; ph 10:57 Follow up: Response: No adverse reaction ph Point of Care Testing: Blood Glucose: 07:24 Blood Glucose: 253 mg/dL; aa5 10:48 Blood Glucose: 159 mg/dL; ph Ranges: Outcome: 10:31 Discharge ordered by . kb 10:57 Discharged to home ambulatory. ph 10:57 Condition: improved 10:57 Discharge instructions given to patient, Instructed on discharge instructions, follow up and referral plans. medication usage, Demonstrated understanding of instructions, follow-up care, medications, Prescriptions given X 2. 10:58 Patient left the ED. NIH Stroke Scale - NIH Stroke Score Date: 07/05/2018 Time: 08:15 Total Score = 0 1a. Level of Consciousness (LOC) - 0(Alert) 1b. Level of Consciousness (LOC) (Year \\T\\ Age) - 0(Both) 1c. LOC Commands (Open \\T\\ Closes Eyes/Lpn Per Diem) - 0(Both) 2. Best Gaze (Lateral Gaze Paresis) - 0(Normal) 3. Visual Field Loss - 0(No visual loss) 4. Facial Palsy - 0(Normal) 5a. Left Arm: Motor (10-second hold) - 0(No drift) 5b. Right Arm: Motor (10-second hold) - 0(No drift) 6a. Left Leg: Motor (5-second hold - always test supine) - 0(No drift) 6b. Right Leg: Motor (5-second hold - always test supine) - 0(No drift) 7. Limb Ataxia (finger/nose \\T\\ heel/russ - test with eyes open) - 0(Absent) 8. Sensory Loss (pinprick arms/legs/face) - 0(Normal) 9. Best Language: Aphasia (description/naming/reading) - 0(No aphasia) 10. Dysarthria (speech clarity - read or repeat words) - 0(Normal) 11. Extinction and Inattention (visual/tactile/auditory/spatial/personal) - 0(No abnormality) Initials: kb Signatures: Paul Ron jb1 Tiffany Aguilar, TUB WASH OPERATOR-Tiny TUB WASH OPERATOR-Marielena Bermudez Audri RN RN aa5 Kandace Nathan RN RN ph Myra Aguilar kj1
--- NOTE | 2018-07-05 10:33 | EDPHYS ---
Physician Documentation [facility] Name: Gretchen Zavala Age: 53 yrs Sex: Female : 1965 Arrival Date: 07/05/2018 Time: 07:14 Bed 13 Private MD: Michael Mercado ED Physician Ollie Posada HPI: 07/05 08:10 This 53 yrs old Black Female presents to ER via Ambulatory with complaints of High kb Blood Sugar, Dizziness. 08:11 The patient presents with dizziness, generalized weakness. Onset: The symptoms/episode kb began/occurred this morning. Context: occurred at home, occurred while the patient was getting up from bed. Modifying factors: The symptoms are alleviated by nothing, the symptoms are aggravated by changing position. Associated signs and symptoms: Pertinent positives: nausea. Severity of symptoms: At their worst the symptoms were moderate in the emergency department the symptoms are unchanged. Patient's baseline: Neuro: alert and fully oriented, Motor: no deficits, Ambulation: walks without assistance, Speech: normal. The patient has not experienced similar symptoms in the past. The patient has not recently seen a physician. Pt reports she wasn't able to sleep last night because her mind wouldn't shut down. States this has been a problem for a long time. This morning felt dizzy when she moved around, generalized weakness and nausea. States not sleeping makes her feel this way. Also reports her sugar was 500 this morning. 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 - Social history:: Smoking status: Patient/guardian denies using tobacco. - Ebola Screening: : No symptoms or risks identified at this time. ROS: 08:11 Constitutional: Negative for fever, chills, and weight loss, Cardiovascular: Negative kb for chest pain, palpitations, and edema, Respiratory: Negative for shortness of breath, cough, wheezing, and pleuritic chest pain, Abdomen/GI: Negative for abdominal pain, vomiting, diarrhea, and constipation. +nausea MS/Extremity: Negative for injury and deformity, Skin: Negative for injury, rash, and discoloration. 08:11 Neuro: Positive for dizziness, weakness, Negative for altered mental status, gait disturbance, headache, hearing loss, loss of consciousness, numbness, seizure activity, speech changes, syncope, near syncope, tingling, tinnitus, tremor, visual changes. Exam: 08:15 Constitutional: This is a well developed, well nourished patient who is awake, alert, kb and in no acute distress. Head/Face: Normocephalic, atraumatic. Eyes: Pupils equal round and reactive to light, extra-ocular motions intact. Lids and lashes normal. Conjunctiva and sclera are non-icteric and not injected. Cornea within normal limits. Periorbital areas with no swelling, redness, or edema. ENT: Nares patent. No nasal discharge, no septal abnormalities noted. Tympanic membranes are normal and external auditory canals are clear. Oropharynx with no redness, swelling, or masses, exudates, or evidence of obstruction, uvula midline. Mucous membranes moist. Neck: Trachea midline, no thyromegaly or masses palpated, and no cervical lymphadenopathy. Supple, full range of motion without nuchal rigidity, or vertebral point tenderness. No Meningismus. Chest/axilla: Normal chest wall appearance and motion. Nontender with no deformity. No lesions are appreciated. Cardiovascular: Regular rate and rhythm with a normal S1 and S2. No gallops, murmurs, or rubs. Normal PMI, no JVD. No pulse deficits. Respiratory: Lungs have equal breath sounds bilaterally, clear to auscultation and percussion. No rales, rhonchi or wheezes noted. No increased work of breathing, no retractions or nasal flaring. Abdomen/GI: Soft, non-tender, with normal bowel sounds. No distension or tympany. No guarding or rebound. No evidence of tenderness throughout. Skin: Warm, dry with normal turgor. Normal color with no rashes, no lesions, and no evidence of cellulitis. MS/ Extremity: Pulses equal, no cyanosis. Neurovascular intact. Full, normal range of motion. Neuro: Awake and alert, GCS 15, oriented to person, place, time, and situation. Cranial nerves II-XII grossly intact. Motor strength 5/5 in all extremities. Sensory grossly intact. Cerebellar exam normal. Normal gait. Vital Signs: 07:20 BP 128 / 80; Pulse 90; Resp 18 S; Temp 98.1(TE); Pulse Ox 99% on R/A; Weight 70.76 kg aa5 (R); Height 5 ft. 4 in. (162.56 cm) (R); Pain 0/10; 08:21 BP 123 / 81 Supine; Pulse 95 LA; Resp 18; kj1 08:21 BP 125 / 87 Sitting; Pulse 100; Resp 18; kj1 08:21 BP 125 / 92 Standing; Pulse 95; Resp 18; kj1 09:18 BP 112 / 77; Pulse 76; Resp 18; Pulse Ox 97% on R/A; ph 10:18 BP 106 / 72; Pulse 81; Resp 16; Pulse Ox 98% on R/A; ph 10:48 BP 107 / 69; Pulse 78; Resp 18; Temp 97.8; Pulse Ox 99% on R/A; ph 07:20 Body Mass Index 26.78 (70.76 kg, 162.56 cm) aa5 NIH Stroke Scale Scores: 08:15 NIHSS Score: 0 kb MDM: 07:26 Patient medically screened. kb 08:14 Data reviewed: vital signs, nurses notes. Data interpreted: Pulse oximetry: on room air kb is 99 %. Interpretation: normal. Counseling: I had a detailed discussion with the patient and/or guardian regarding: the historical points, exam findings, and any diagnostic results supporting the discharge/admit diagnosis, lab results, the need for outpatient follow up, a family practitioner, to return to the emergency department if symptoms worsen or persist or if there are any questions or concerns that arise at home. 10:32 ED course: Pt feeling better after treatment. . kb 07/05 07:27 Order name: CBC with Diff; Complete Time: 08:38 kb 07/05 07:27 Order name: Basic Metabolic Panel; Complete Time: 09:42 kb 07/05 07:27 Order name: Acetone, Serum; Complete Time: 09:42 kb 07/05 08:12 Order name: Urine Dipstick--Ancillary (enter results); Complete Time: 10:17 bd 07/05 10:48 Order name: Glucose, Ancillary Testing; Complete Time: 10:49 EDMS 07/05 07:27 Order name: IV Start; Complete Time: 08:16 kb 07/05 07:27 Order name: Urine Dipstick-Ancillary (obtain specimen); Complete Time: 08:05 kb 07/05 07:37 Order name: Orthostatics; Complete Time: 08:16 kb 07/05 08:28 Order name: Labs - recollect needed; Complete Time: 08:56 bd Administered Medications: 08:57 Drug: NS 0.9% 1000 ml Route: IV; Rate: 1000 ml; Site: right antecubital; ph 10:50 Follow up: Response: No adverse reaction; IV Status: Completed infusion ph 08:57 Drug: Zofran 4 mg Route: IVP; Site: right antecubital; ph 10:57 Follow up: Response: No adverse reaction; Nausea is decreased ph 09:16 Drug: Meclizine 25 mg Route: PO; ph 10:57 Follow up: Response: No adverse reaction ph Point of Care Testing: Blood Glucose: 07:24 Blood Glucose: 253 mg/dL; aa5 10:48 Blood Glucose: 159 mg/dL; ph Ranges: Critical Glucose Levels:Adult <50 mg/dl or >400 mg/dl <40 mg/dl or >180 mg/dl Disposition: 07/05/18 10:31 Discharged to Home. Impression: Dizziness and giddiness, Hyperglycemia, unspecified. - Condition is Stable. - Discharge Instructions: Vertigo, [id number], Hyperglycemia, [id number], Dizziness, [id number]. - Prescriptions for Meclizine 25 mg Oral Tablet - take 1 tablet by ORAL route every 8 hours As needed; 30 tablet. Zofran 4 mg Oral Tablet - take 1 tablet by ORAL route every 6 hours As needed; 20 tablet. - Medication Reconciliation Form, Thank You Letter, Antibiotic Education, Prescription Opioid Use form. - Follow up: Emergency Department; When: As needed; Reason: Worsening of condition. Follow up: Private Physician; When: 2 - 3 days; Reason: Recheck today's complaints, Continuance of care, Re-evaluation by your physician. NIH Stroke Scale - NIH Stroke Score Date: 07/05/2018 Time: 08:15 Total Score = 0 1a. Level of Consciousness (LOC) - 0(Alert) 1b. Level of Consciousness (LOC) (Year \T\ Age) - 0(Both) 1c. LOC Commands (Open \T\ Closes Eyes/Bobbin Cleaner) - 0(Both) 2. Best Gaze (Lateral Gaze Paresis) - 0(Normal) 3. Visual Field Loss - 0(No visual loss) 4. Facial Palsy - 0(Normal) 5a. Left Arm: Motor (10-second hold) - 0(No drift) 5b. Right Arm: Motor (10-second hold) - 0(No drift) 6a. Left Leg: Motor (5-second hold - always test supine) - 0(No drift) 6b. Right Leg: Motor (5-second hold - always test supine) - 0(No drift) 7. Limb Ataxia (finger/nose \T\ heel/russ - test with eyes open) - 0(Absent) 8. Sensory Loss (pinprick arms/legs/face) - 0(Normal) 9. Best Language: Aphasia (description/naming/reading) - 0(No aphasia) 10. Dysarthria (speech clarity - read or repeat words) - 0(Normal) 11. Extinction and Inattention (visual/tactile/auditory/spatial/personal) - 0(No abnormality) Initials: kb Addendum: 07/06/2018 12:07 Co-signature as Attending Physician, Ollie Posada MD I agree with the [facility] assessment and plan of care. Signatures: Dispatcher [employer] EDTiffany Hart, TESSA-C OTR TANKER TRUCK DRIVER-Patricia Parker Corey, MD MD cha Calderon, Audri, RN RN aa5 Kandace Nathan RN RN ph Corrections: (The following items were deleted from the chart) 07/05 10:58 10:31 07/05/2018 10:31 Discharged to Home. Impression: Dizziness and giddiness; ph Hyperglycemia, unspecified. Condition is Stable. Forms are Medication Reconciliation Form, Thank You Letter, Antibiotic Education, Prescription Opioid Use. Follow up: Emergency Department; When: As needed; Reason: Worsening of condition. Follow up: Private Physician; When: 2 - 3 days; Reason: Recheck today's complaints, Continuance of care, Re-evaluation by your physician. kb
[2018-07-05 11:26] VITALS: BP 107/69; TEMP 97.8; O2SAT 99
== END 2018-07-05 10:58 | disposition home or self-care (01) ==
LOC: ER 07:12
DX: E11.65 Type 2 diabetes mellitus with hyperglycemia (principal); F32.9 Major depressive disorder, single episode, unspecified; I10 Essential (primary) hypertension; E78.00 Pure hypercholesterolemia, unspecified
CPT/HCPCS: 36415; 80048; 81003; 82010; 82962; 85025; 96361; 96374; 99284; J2405; J7030